=== PATIENT | male | born 1965 | race American Indian/Alaskan Native ===

== ENCOUNTER 2018-11-17 00:20 | Inpatient (IN) | payer SELFPAY ==
[2018-11-17] MEDS ORDERED: ASPIRIN PO ONE (00:52)
[2018-11-17 01:32] LABS: Basophils % (Auto) 0.9 % (0.0-1.8); Eosinophils # (Auto) 0.2 K/mm3 (0.0-0.4); Eosinophils % (Auto) 4.3 % (0.0-4.3); Hemoglobin 14.4 gm/dl (11.8-15.2); Lymphocytes # (Auto) 1.4 K/mm3 (1.2-5.4); Lymphocytes % (Auto) 35.3 % (13.4-35.0); Mean Corpuscular HGB Conc 34 % (32-34); Mean Corpuscular Volume 97 fl (84-94); Monocytes # (Auto) 0.5 K/mm3 (0.0-0.8); Monocytes % (Auto) 12.7 % (0.0-7.3); Platelet Count 240 K/mm3 (140-440); Red Blood Count 4.34 M/mm3 (3.65-5.03); Red Cell Distribution Width 15.2 % (13.2-15.2)
[2018-11-17 01:46] LABS: BUN/Creatinine Ratio 8; Blood Urea Nitrogen 8 mg/dL (9-20); Calcium 8.8 mg/dL (8.4-10.2); Hemolysis Index 7
[2018-11-17] MEDS ORDERED: ZOFRAN IV ONE (01:56)
[2018-11-17] MEDS ORDERED: NITRO-BID 2% TP ONE (01:56)
[2018-11-17] MEDS ORDERED: SUBLIMAZE IV ONE (01:56)
--- NOTE | 2018-11-17 01:58 | Emergency Department Report ---
HPI - General Chief Complaint: Chest Pain Time Seen by Provider: 11/17/18 01:46 - [facility] HPI: Room 18 The patient is a 53-year-old male presenting with a chief complaint of chest pain. The patient states since yesterday he has had constant substernal chest tightness associated with shortness of breath nausea and vomiting. Patient admits to dizziness and swelling in bilateral lower extremities as well as bilateral hands. Patient denies diaphoresis. Patient currently gives his chest pain score of 10/10. The patient states he is on hydrochlorothiazide and Lasix for CHF but he missed one day of those medications. Patient states his last stress test occurred in 2008 but he's never had a cardiac catheterization Location: [See above] Duration: [See above] Quality: Tightness Severity: 07/04 Modifying factors: [see above] Context: [see above] Mode of transportation: [not driving] ED Past Medical Hx - Past Medical History Hx Hypertension: Yes Hx Congestive Heart Failure: Yes Additional medical history: BPH - Surgical History Past Surgical History?: Yes Additional Surgical History: Right forearm tendon repair, right lower extremity tendon repair - Family History Family history: no significant - Social History Smoking Status: Former Smoker (none 1 year) Substance Use Type: None (denies illicit drug use), Alcohol (moderate) ED Review of Systems ROS: Stated complaint: HANDS SWOLLEN/CHEST PAIN/HIGH BP Other details as noted in HPI Constitutional: denies: diaphoresis Eyes: denies: eye pain ENT: denies: throat pain Respiratory: shortness of breath Cardiovascular: chest pain Endocrine: no symptoms reported Gastrointestinal: nausea, vomiting Genitourinary: denies: dysuria Musculoskeletal: denies: back pain Neurological: denies: headache Physical Exam - Physical Exam Vital Signs: Vital Signs 11/17/18 11/17/18 00:46 01:45 Temperature 98.6 F Pulse Rate 90 78 Respiratory 20 12 Rate Blood Pressure 161/115 O2 Sat by Pulse 98 96 Oximetry Physical Exam: GENERAL: The patient is well-developed well-nourished male sitting on stretcher not appear to be in acute distress. [] HEENT: Normocephalic. Atraumatic. Extraocular motions are intact. Patient has moist mucous membranes. NECK: Supple. Trachea midline CHEST/LUNGS: Clear to auscultation. There is no respiratory distress noted. HEART/CARDIOVASCULAR: Regular. There is no tachycardia. There is no gallop rub or murmur. ABDOMEN: Abdomen is soft, nontender. Patient has normal bowel sounds. There is no abdominal distention. SKIN: There is no rash. There is trace bilateral lower extremity pitting edema. There is no diaphoresis. NEURO: The patient is awake, alert, and oriented. The patient is cooperative. The patient has normal speech MUSCULOSKELETAL:There is no evidence of acute injury. ED Course Vital Signs 11/17/18 11/17/18 00:46 01:45 Temperature 98.6 F Pulse Rate 90 78 Respiratory 20 12 Rate Blood Pressure 161/115 O2 Sat by Pulse 98 96 Oximetry ED Medical Decision Making - Lab Data Result diagrams: 11/17/18 00:56 11/17/18 00:56 Laboratory Results - last 24 hr 11/17/18 11/17/18 00:56 00:56 WBC 3.8 L RBC 4.34 Hgb 14.4 Hct 42.0 MCV 97 H MCH 33 H MCHC 34 RDW 15.2 Plt Count 240 Lymph % (Auto) 35.3 H Jewell % (Auto) 12.7 H Eos % (Auto) 4.3 Baso % (Auto) 0.9 Lymph # 1.4 Jewell # 0.5 Eos # 0.2 Baso # 0.0 Seg Neutrophils % 46.8 Seg Neutrophils # 1.8 Sodium 141 Potassium 3.8 Chloride 101.8 Carbon Dioxide 25 Anion Gap 18 BUN 8 L Creatinine 1.0 Estimated GFR > 60 BUN/Creatinine Ratio 8 Glucose 98 Calcium 8.8 Troponin T < 0.010 - EKG Data -: EKG Interpreted by Me EKG shows normal: sinus rhythm Rate: normal - EKG Data When compared to previous EKG there are: previous EKG unavailable Interpretation: nonspecific ST-T wave emily - Radiology Data Radiology results: image reviewed (chest x-ray) interpreted by me: Chest x-ray-no focal infiltrates, no pneumothorax - Differential Diagnosis ACS, pericarditis, CHF exacerbation, pneumonia Critical care attestation.: If time is entered above; I have spent that time in minutes in the direct care of this critically ill patient, excluding procedure time. ED Disposition Clinical Impression: Chest pain Disposition: DC09 OP ADMIT IP TO THIS HOSP Is pt being admited?: Yes Does the pt Need Aspirin: Yes Condition: Fair Instructions: Chest Pain (ED) [facility] [Primary Care Provider] - 3-5 Days Time of Disposition: 02:33 (hospitalist notified (Dr Ramirez))
--- NOTE | 2018-11-17 02:29 | XRay Report ---
FINAL REPORT PROCEDURE: XR CHEST 1V AP TECHNIQUE: Chest radiograph anteroposterior view. CPT 44893 HISTORY: chest pain COMPARISON: No prior studies are available for comparison. FINDINGS: Heart: Normal. Mediastinum/Vessels: Normal. Lungs/Pleural space: Normal. Bony thorax: No acute osseous abnormality. Life support devices: None. IMPRESSION: No acute cardiopulmonary abnormality.
[2018-11-17] MEDS ORDERED: NITROSTAT SL PRN (03:41)
[2018-11-17] MEDS ORDERED: MORPHINE IV PRN (03:42)
[2018-11-17] MEDS ORDERED: ZOFRAN IV PRN (03:42)
[2018-11-17] MEDS ORDERED: TYLENOL PO PRN (03:42)
[2018-11-17] MEDS: HEPARIN SUB-Q SCH ×2 (04:15→15:51)
[2018-11-17] MEDS: NITRO-BID 2% TP SCH ×5 (04:21→17:51)
--- NOTE | 2018-11-17 04:25 | History and Physical Report ---
CHIEF COMPLAINT: Chest pain. HISTORY OF PRESENT ILLNESS: The patient is a 53-year-old male, who said he has been having chest pain going on for about 24 hours prior to presentation. Pain is substernal and occurs as tightness in the chest associated with shortness of breath, dizziness, nausea and vomiting. Also, the patient said he has been having swelling in the lower extremity as well as the hand. There is no history of diaphoresis. No history of fever or chills and no history of cough and the patient presented for evaluation. PAST MEDICAL HISTORY: Pertinent for hypertension, congestive heart failure, benign prostatic hypertrophy. PAST SURGICAL HISTORY: Pertinent for right forearm tendon repair, right lower extremity tendon repair. FAMILY HISTORY: Noncontributory. SOCIAL HISTORY: The patient is a former cigarette smoker, but does not smoke currently, does not use illicit drugs and drinks alcohol occasionally. MEDICATIONS: The patient's home medications are not known at this time. ALLERGIES: THE PATIENT IS ALLERGIC TO PENICILLIN. REVIEW OF SYSTEMS: CONSTITUTIONAL: There is no fever, no chills, no diaphoresis. HEENT: There is no headache or sore throat. CARDIOVASCULAR SYSTEM: Chest pain is present. No orthopnea. RESPIRATORY: Shortness of breath is present. No cough. GASTROINTESTINAL: Nausea and vomiting is present. No abdominal pain, diarrhea or constipation. NEUROLOGICAL SYSTEM: There is no numbness, but there is dizziness and there is no altered mental status. MUSCULOSKELETAL SYSTEM: There is no joint pain or swelling. DERMATOLOGICAL SYSTEM: There is no skin rash or itching. GENITOURINARY SYSTEM: There is dysuria, hematuria or flank pain. Rest of system review is normal. PHYSICAL EXAMINATION: GENERAL: At the time of exam, the patient was found to be alert, oriented x 3 and not in acute disease. The patient's vital signs at the initial time of presentation shows temperature of 98.6 degrees Fahrenheit, pulse of 90, respirations 20, blood pressure 161/115, O2 sat of 98% on room air and the patient's blood pressure later came down to 133/99. HEENT: Showed pupils to be equal, round, reactive to light and accommodating. Extraocular muscles are intact. NECK: Supple with no JVD or carotid bruit. CARDIOVASCULAR: Showed normal first and second heart sounds with no gallops or murmurs. RESPIRATORY SYSTEM: Show good air entry on both sides of the lungs with no abnormal breath sounds. GASTROINTESTINAL SYSTEM: Show abdomen to be full, soft, nontender with no organomegaly or rigidity. NEUROLOGICAL: Shows no focal deficit. MUSCULOSKELETAL SYSTEM: Show no joint swelling or tenderness. DERMATOLOGIC SYSTEM: Show no skin rash. GENITOURINARY SYSTEM: Showing no costovertebral angle tenderness. PERTINENT LABORATORY AND IMAGING STUDIES: The patient had chest x-ray done that shows no active cardiopulmonary lesion and the patient's lab results show CBC with normal hemoglobin and normal hematocrit, slightly low WBC of 3.8 with CBC differential showing elevated lymphocyte and monocyte count. The patient's chemistry was unremarkable. Cardiac enzyme and troponin came back normal. DIAGNOSES: 1. Chest pain. 2. Hypertension. PLAN OF CARE: 1. The patient will be admitted to telemetry as inpatient. 2. The patient will have cardiac enzymes involving troponin, total CK and CK-MB checked every 6 hours x 2 more level. 3. The patient will be n.p.o. for Lexiscan stress test in the morning. 4. The patient will be on aspirin 325 mg by mouth daily and will be on Tylenol 650 mg by mouth every 4 hours for fever and headache. 5. The patient will be on nitro paste half inch to anterior chest wall q. 6 hours and also the patient will be on sublingual nitroglycerin 0.4 mg every 5 minutes for breakthrough chest pain. 6. The patient will be on IV morphine 2 mg every 3 hours as needed for pain and IV Zofran 4 mg every 8 hours for nausea and vomiting. 7. The patient will remain n.p.o. for Lexiscan stress test this morning and will be on heparin 5000 units subcutaneous q. 12 hours for DVT prophylaxis. 8. The patient will be on oxygen by nasal cannula at 2 liter per minute. JOB# [id number] OCN/NTS
[2018-11-17 06:46] LABS: Creatine Kinase MB 3.2 ng/mL (0.0-4.0)
[2018-11-17] MEDS ORDERED: LEXISCAN IV ONE ×2 (08:04→08:09)
[2018-11-17] MEDS: ASPIRIN PO SCH (11:05)
[2018-11-17] MEDS ORDERED: APRESOLINE IV STA (11:27)
[2018-11-17] MEDS: NORVASC PO SCH (13:03)
[2018-11-17] MEDS: LASIX PO SCH (13:03)
[2018-11-17] MEDS: ZESTRIL PO SCH (13:03)
[2018-11-17] MEDS: DUONEB *Not for PRN Use IH SCH ×2 (14:18→21:42)
[2018-11-17 14:24] LABS: Creatine Kinase MB 2.9 ng/mL (0.0-4.0)
[2018-11-17] MEDS: MUCINEX ER PO SCH ×2 (15:51→21:15)
--- NOTE | 2018-11-17 16:06 | Event Note ---
Date: 11/17/18 Patient admitted today for chest pain, rule out ACS. He also complained of dry cough with shortness of breath, indicative of acute bronchitis. He will be replaced a mucinex and duoneb. we will do influenza A/B screen. His stress test result is pending. Echo ordered. For possible discharge in a.m. if clinically stable
[2018-11-17] MEDS ORDERED: ATIVAN IV PRN (16:32)
[2018-11-17] MEDS: VITAMIN B-1 PO SCH (16:59)
[2018-11-17] MEDS: FOLVITE PO SCH (16:59)
[2018-11-17] MEDS: LIBRIUM PO SCH (21:15)
--- NOTE | 2018-11-17 21:47 | Treadmill Report ---
NUCLEAR PERFUSION SCAN REFERRING PHYSICIAN: Hospitalist service. PROTOCOL: The patient was brought to the stress lab in a postabsorptive state, given 10 mCi of technetium 99m at rest. The patient underwent rest imaging. The patient underwent Lexiscan stress test per standard protocol. At peak stress, the patient was given 26 mCi of technetium 99m. Shortly thereafter, the patient underwent stress imaging. Raw imaging reveals significant GI artifact. There is mild motion artifact as well. SPECT imaging examined carefully in horizontal long axis, vertical long axis, and short axis views. INTERPRETATION: Technically difficult study due to motion artifact, but grossly no evidence of significant fixed or reversible perfusion defects suggestive of prior infarction or ischemia. Gated wall motion reveals normal systolic thickening, calculated ejection fraction 54%. No TID. CONCLUSIONS: 1. Technically difficult study due to motion artifact, but grossly probably normal without evidence of significant degree of ischemia or prior infarction. 2. Normal left ventricular systolic performance without evidence of transient ischemic dilatation or stress-induced segmental wall motion abnormalities. JOB# [id number] SIMON/ROYA
[2018-11-18] MEDS: DUONEB *Not for PRN Use IH SCH ×2 (02:37→08:50)
[2018-11-18] MEDS: HEPARIN SUB-Q SCH (04:28)
[2018-11-18] MEDS: NITRO-BID 2% TP SCH ×3 (05:53→13:28)
[2018-11-18] MEDS: LIBRIUM PO SCH ×2 (08:32→13:38)
[2018-11-18] MEDS: VITAMIN B-1 PO SCH (09:37)
[2018-11-18] MEDS: MUCINEX ER PO SCH (09:38)
[2018-11-18] MEDS: FOLVITE PO SCH (09:38)
[2018-11-18] MEDS: LASIX PO SCH (09:38)
[2018-11-18] MEDS: ASPIRIN PO SCH (09:38)
[2018-11-18] MEDS: NORVASC PO SCH (09:40)
[2018-11-18] MEDS: ZESTRIL PO SCH (09:41)
[2018-11-18] MEDS ORDERED: THERAGRAN Tab PO SCH (10:00)
[2018-11-18 12:20] VITALS: BP 150/102
--- NOTE | 2018-11-20 02:19 | Discharge Summary ---
Providers - Providers Date of Admission: 11/17/18 02:31 Date of discharge: 11/18/18 Attending physician: MILLIE ROGERS Primary care physician: ANTONIO DEL RIO MD Hospitalization Reason for admission: chest pain Condition: Fair Pertinent studies: Chest x-ray: Negative Stress test Echo: EF of 45-50% with normal diastolic dysfunction Procedures: None Hospital course: Final discharge diagnoses: -Chest pain, rule out ACS -Acute bronchitis -Uncontrolled hypertension -Polysubstance abuse(tobacco and alcohol) Hospital course: Patient was admitted and placed on chest pain pathway. Serial troponin levels were negative. Due to his history of alcohol abuse, he was placed on alcohol withdrawal prophylaxis. In addition, he received antihypertensives for blood pressure control as well as Mucinex and nebulizer breathing treatments for the bronchitis. Thereafter, he had a stress test which was reported as negative for acute ischemia. He was then deemed stable for discharge with clinic follow-up. On discharge, the patient was chest pain-free. He was also counseled on tobacco and alcohol use cessation. Disposition: DC- TO HOME OR SELFCARE Time spent for discharge: 30 minutes Core Measure Documentation - Palliative Care Palliative Care/ Comfort Measures: Not Applicable - Core Measures Any of the following diagnoses?: none Exam - Constitutional Vitals: Temp Pulse Resp BP Pulse Ox 98.1 F 80 20 150/102 95 11/18/18 12:18 11/18/18 12:19 11/18/18 12:19 11/18/18 12:19 11/18/18 12:19 General appearance: Present: no acute distress, well-nourished - EENT Eyes: Present: PERRL, EOM intact ENT: hearing intact, clear oral mucosa - Neck Neck: Present: supple, normal ROM - Respiratory Respiratory effort: normal Respiratory: bilateral: CTA - Cardiovascular Rhythm: regular Heart Sounds: Present: S1 & S2. Absent: rub, click - Extremities Extremities: No edema Peripheral Pulses: within normal limits - Abdominal General gastrointestinal: Present: soft, non-tender, non-distended, normal bowel sounds Male genitourinary: Present: normal - Integumentary Integumentary: Present: clear, warm, dry - Musculoskeletal Musculoskeletal: gait normal, strength equal bilaterally - Psychiatric Psychiatric: appropriate mood/affect, intact judgment & insight - Neurologic Neurologic: CNII-XII intact, moves all extremities Plan Follow up with: JOHN [facility] MD NIKKY [Referring] - 3-5 Days Prescriptions: ALBUTEROL Inhaler(NF) [VENTOLIN Inhaler(NF)] 1 puff IH Q6H PRN #1 inha PRN Reason: Shortness Of Breath amLODIPine [Norvasc] 10 mg PO QDAY #30 tablet guaiFENesin ER [Mucinex ER] 600 mg PO BID #10 tablet
== END 2018-11-18 13:45 | disposition home or self-care (01) | DRG 313 ==
LOC: ED 00:20 → 4A 02:31
PROVIDERS: ADMIT Internal Medicine; ATTEND Internal Medicine
DX: R07.9 Chest pain, unspecified (principal); J20.9 Acute bronchitis, unspecified; F19.10 Other psychoactive substance abuse, uncomplicated; I11.0 Hypertensive heart disease with heart failure; I50.9 Heart failure, unspecified; N40.0 Benign prostatic hyperplasia without lower urinary tract symptoms; F17.210 Nicotine dependence, cigarettes, uncomplicated; Z72.89 Other problems related to lifestyle; Z71.6 Tobacco abuse counseling; Z71.41 Alcohol abuse counseling and surveillance of alcoholic; Z88.0 Allergy status to penicillin
CPT/HCPCS: 36415; 71045; 78452; 80048; 82550; 82553; 84484; 85025; 87116; 87400; 93005; 93010; 93017; 93306; 94640; G0378; A9502; J0360; J1644; J2060; J2270; J2405; J2785; J3010

== ENCOUNTER 2019-01-23 23:12 | Emergency (ER) | payer SELFPAY ==
[2019-01-23] MEDS ORDERED: ASPIRIN PO ONE (23:27)
[2019-01-23 23:30] VITALS: BP 146/100
[2019-01-23 23:38] LABS: Basophils % (Auto) 0.3 % (0.0-1.8); Eosinophils # (Auto) 0.1 K/mm3 (0.0-0.4); Eosinophils % (Auto) 1.5 % (0.0-4.3); Hematocrit 39.7 % (35.5-45.6); Hemoglobin 13.8 gm/dl (11.8-15.2); Lymphocytes # (Auto) 0.6 K/mm3 (1.2-5.4); Lymphocytes % (Auto) 16.3 % (13.4-35.0); Mean Corpuscular HGB Conc 35 % (32-34); Mean Corpuscular Volume 95 fl (84-94); Monocytes # (Auto) 0.4 K/mm3 (0.0-0.8); Monocytes % (Auto) 11.1 % (0.0-7.3); Platelet Count 215 K/mm3 (140-440); Red Blood Count 4.17 M/mm3 (3.65-5.03); Red Cell Distribution Width 16.2 % (13.2-15.2)
[2019-01-24] LABS: BUN/Creatinine Ratio 8; Blood Urea Nitrogen 7 mg/dL (9-20); Calcium 8.7 mg/dL (8.4-10.2); Hemolysis Index 9
--- NOTE | 2019-01-24 00:04 | XRay Report ---
PROCEDURE: XR CHEST 1V AP TECHNIQUE: Chest radiograph single view. HISTORY: Chest Pain COMPARISONS: None . FINDINGS: Heart: Normal. Mediastinum/Vessels: Normal. Lungs/Pleural space: Normal. Bony thorax: No acute osseous abnormality. Life support devices: None. IMPRESSION: No acute cardiopulmonary abnormality. This document is electronically signed by Nicholas Gross MD., Jan 24 2019 12:02:35 AM ET
--- NOTE | 2019-01-24 01:11 | Emergency Department Report ---
ED Chest Pain HPI - General Chief Complaint: Chest Pain Stated Complaint: CHEST PAIN/DIZZINESS Time Seen by Provider: 01/24/19 01:01 Source: patient Mode of arrival: Ambulatory Limitations: No Limitations - History of Present Illness Initial Comments: Patient is 53 years old male with history of hypertension, asthma and history of prostate cancer. Patient presented to the ER complaining of chest pain and lower extremity swelling on both sides. Patient stated that his pain is started 5 days ago. Patient stated that he stand a lot at his work. Patient denied any fever, shortness of breath. Patient denied any abdominal pain, nausea or vomiting. MD Complaint: chest pain - Related Data Home Medications Medication Instructions Recorded Confirmed Last Taken Furosemide [Lasix TAB] 20 mg PO DAILY 11/17/18 11/17/18 Unknown Lisinopril [Zestril TAB] 40 mg PO DAILY 11/17/18 11/17/18 Unknown Previous Rx's Medication Instructions Recorded Last Taken Type ALBUTEROL Inhaler(NF) [VENTOLIN 1 puff IH Q6H PRN #1 inha 11/18/18 Unknown Rx Inhaler(NF)] amLODIPine [Norvasc] 10 mg PO QDAY #30 tablet 11/18/18 Unknown Rx guaiFENesin ER [Mucinex ER] 600 mg PO BID #10 tablet 11/18/18 Unknown Rx Allergies Allergy/AdvReac Type Severity Reaction Status Date / Time Penicillins Allergy Hives Verified 11/17/18 00:21 Heart Score - HEART Score History: Slightly suspicious EKG: Normal Age: 45-65 Risk factors: 1-2 risk factors Troponin: < normal limit HEART Score: 2 - Critical Actions Critical Actions: 0-3 pts:0.9-1.7%risk of adverse cardiac event.Candidate for discharge ED Review of Systems ROS: Stated complaint: CHEST PAIN/DIZZINESS Other details as noted in HPI Comment: All other systems reviewed and negative Constitutional: denies: chills, fever Respiratory: denies: cough, shortness of breath, SOB with exertion Cardiovascular: chest pain Gastrointestinal: denies: abdominal pain, nausea, vomiting, diarrhea, co nstipation, hematemesis, hematochezia Neurological: denies: headache, weakness ED Past Medical Hx - Past Medical History Previous Medical History?: Yes Hx Hypertension: Yes Hx Heart Attack/AMI: No Hx Congestive Heart Failure: Yes Hx Diabetes: No Hx Deep Vein Thrombosis: No Hx of Cancer: Yes (Prostate) Hx Asthma: Yes Hx COPD: No Additional medical history: BPH - Surgical History Past Surgical History?: Yes Hx Coronary Stent: No Hx Pacemaker: No Hx Internal Defibrillator: No Additional Surgical History: Right forearm tendon repair, right lower extremity tendon repair - Social History Smoking Status: Never Smoker Substance Use Type: None - Medications Home Medications: Home Medications Medication Instructions Recorded Confirmed Last Taken Type Furosemide [Lasix TAB] 20 mg PO DAILY 11/17/18 11/17/18 Unknown History Lisinopril [Zestril TAB] 40 mg PO DAILY 11/17/18 11/17/18 Unknown History ALBUTEROL Inhaler(NF) [VENTOLIN 1 puff IH Q6H PRN #1 inha 11/18/18 Unknown Rx Inhaler(NF)] amLODIPine [Norvasc] 10 mg PO QDAY #30 tablet 11/18/18 Unknown Rx guaiFENesin ER [Mucinex ER] 600 mg PO BID #10 tablet 11/18/18 Unknown Rx ED Physical Exam - General Limitations: No Limitations General appearance: alert, in no apparent distress - Head Head exam: Present: atraumatic, normocephalic, normal inspection - Eye Eye exam: Present: normal appearance, PERRL - ENT ENT exam: Present: normal exam, normal orophraynx, mucous membranes moist - Neck Neck exam: Present: normal inspection, full ROM. Absent: tenderness, meningismus, lymphadenopathy, thyromegaly - Respiratory Respiratory exam: Present: normal lung sounds bilaterally - Cardiovascular Cardiovascular Exam: Present: regular rate, normal rhythm, normal heart sounds - GI/Abdominal GI/Abdominal exam: Present: soft, normal bowel sounds. Absent: distended, tenderness, guarding, rebound, rigid, mass, bruit, pulsatile mass, hernia - Extremities Exam Extremities exam: Present: normal inspection, full ROM, normal capillary refill - Back Exam Back exam: Present: normal inspection, full ROM. Absent: CVA tenderness (R), CVA tenderness (L), muscle spasm, paraspinal tenderness, vertebral tenderness - Neurological Exam Neurological exam: Present: alert, oriented X3, CN II-XII intact, normal gait, reflexes normal - Skin Skin exam: Present: warm, intact, normal color. Absent: cyanosis, diaphoretic, erythema, urticaria ED Course Vital Signs 01/23/19 23:28 Temperature 98.7 F Pulse Rate 98 H Respiratory 20 Rate Blood Pressure 146/100 O2 Sat by Pulse 100 Oximetry ED Medical Decision Making - Lab Data Result diagrams: 01/23/19 23:28 01/23/19 23:28 - EKG Data -: EKG Interpreted by Me EKG shows normal: sinus rhythm Rate: normal - EKG Data Interpretation: no acute changes - Radiology Data Radiology results: report reviewed Chest x-ray is unremarkable - Medical Decision Making Patient is 53 years old male with history of hypertension, asthma and history of prostate cancer. Patient presented to the ER complaining of chest pain and lower extremity swelling on both sides. Patient stated that his pain is started 5 days ago. Patient stated that he stand a lot at his work. Patient denied any fever, shortness of breath. Patient denied any abdominal pain, nausea or vomiting. Patient is chest pain-free. EKG is unremarkable. Chest x-ray is negative for acute findings. Troponin is negative. No evidence of CHF exacerbation. And had a stress test in October of this year which was unremarkable. I'll prescribe Lasix for patient peripheral edema. Patient advised to follow-up with his primary care physician in the next 2-3 days and to return to the ER if symptoms have not improved. Critical care attestation.: If time is entered above; I have spent that time in minutes in the direct care of this critically ill patient, excluding procedure time. ED Disposition Clinical Impression: Chest pain, Peripheral edema Disposition: - TO HOME OR SELFCARE Is pt being admited?: No Condition: Stable Instructions: Chest Pain (ED), Leg Edema (ED) Referrals: CARLOS ENCINAS MD [Primary Care Provider] - 3-5 Days
== END 2019-01-24 02:20 | disposition home or self-care (01) ==
LOC: ED 23:12
DX: R07.9 Chest pain, unspecified (principal); R60.9 Edema, unspecified; I11.0 Hypertensive heart disease with heart failure; I50.9 Heart failure, unspecified; N40.0 Benign prostatic hyperplasia without lower urinary tract symptoms; Z85.46 Personal history of malignant neoplasm of prostate
CPT/HCPCS: 36415; 71045; 80048; 83880; 84484; 85025; 93005; 93010

== ENCOUNTER 2019-03-19 23:04 | Inpatient (IN) | payer OTHER ==
--- NOTE | 2019-03-20 00:02 | Emergency Department Report ---
HPI - General Chief Complaint: Chest Pain Time Seen by Provider: 03/19/19 23:43 - HPI HPI: Room 6 The patient is a 53-year-old male presenting with a chief complaint of chest pain. The patient states he's had bilateral lower extremity edema for the past 2 days and chest pain for 1 day. Patient describes the chest pain as substernal in origin and aching in nature. Patient admits to shortness of breath, nausea/vomiting and diaphoresis. Patient also admits to suicidal ideation but will not state for how long. The patient states he has not made any attempts to harm himself but his plan was to shoot himself in the head. Location: Chest, mental state Duration: [See above] Quality: Aching Severity: [See above] Modifying factors: [see above] Context: [see above] Mode of transportation: [not driving] ED Past Medical Hx - Past Medical History Previous Medical History?: Yes Hx Hypertension: Yes Hx Congestive Heart Failure: Yes Hx of Cancer: Yes (prostate) Hx Seizures: Yes Hx Asthma: Yes Additional medical history: BPH - Surgical History Past Surgical History?: Yes Additional Surgical History: Right forearm tendon repair, right lower extremity tendon repair - Family History Family history: no significant - Social History Smoking Status: Never Smoker Substance Use Type: Alcohol (daily) - Medications Home Medications: Home Medications Medication Instructions Recorded Confirmed Last Taken Type Furosemide [Lasix TAB] 20 mg PO DAILY 11/17/18 11/17/18 Unknown History Lisinopril [Zestril TAB] 40 mg PO DAILY 11/17/18 11/17/18 Unknown History ALBUTEROL Inhaler(NF) [VENTOLIN 1 puff IH Q6H PRN #1 inha 11/18/18 Unknown Rx Inhaler(NF)] amLODIPine [Norvasc] 10 mg PO QDAY #30 tablet 11/18/18 Unknown Rx guaiFENesin ER [Mucinex ER] 600 mg PO BID #10 tablet 11/18/18 Unknown Rx Furosemide [Lasix] 20 mg PO QDAY #30 tablet 01/24/19 Unknown Rx Lisinopril [Zestril TAB] 40 mg PO QDAY #30 tablet 01/24/19 Unknown Rx ED Review of Systems ROS: Stated complaint: LEGS PAINFUL WITH SWELLING Other details as noted in HPI Constitutional: diaphoresis Eyes: denies: eye pain ENT: denies: throat pain Respiratory: shortness of breath Cardiovascular: chest pain Endocrine: no symptoms reported Gastrointestinal: nausea, vomiting Genitourinary: denies: dysuria Musculoskeletal: denies: back pain Neurological: denies: headache Psychiatric: suicidal thoughts Physical Exam - Physical Exam Vital Signs: Vital Signs 03/19/19 03/19/19 03/19/19 23:14 23:15 23:41 Temperature 99.6 F 98.1 F Pulse Rate 87 85 Respiratory 18 16 Rate Blood Pressure 100/52 98/59 124/65 [Right] O2 Sat by Pulse 92 98 Oximetry Physical Exam: GENERAL: The patient is well-developed well-nourished male lying on stretcher asleep requiring frequent reawakening for exam. [] HEENT: Normocephalic. Atraumatic. Extraocular motions are intact. Patient has moist mucous membranes. NECK: Supple. Trachea midline CHEST/LUNGS: Clear to auscultation. There is no respiratory distress noted. HEART/CARDIOVASCULAR: Regular. There is no tachycardia. There is no gallop rub or murmur. ABDOMEN: Abdomen is soft, nontender. Patient has normal bowel sounds. There is no abdominal distention. SKIN: There is no rash. There is 2+ bilateral lower extremity pitting edema. There is no diaphoresis. NEURO: The patient is asleep but awakens to voice and is oriented. The patient is cooperative. The patient has no focal neurologic deficits. The patient has normal speech MUSCULOSKELETAL: There is no evidence of acute injury. ED Course Vital Signs 03/19/19 03/19/19 03/19/19 23:14 23:15 23:41 Temperature 99.6 F 98.1 F Pulse Rate 87 85 Respiratory 18 16 Rate Blood Pressure 100/52 98/59 124/65 [Right] O2 Sat by Pulse 92 98 Oximetry ED Medical Decision Making - Lab Data Result diagrams: 03/20/19 00:05 03/20/19 00:05 Laboratory Tests 03/20/19 03/20/19 03/20/19 00:05 00:05 00:05 WBC 3.4 L RBC 3.75 Hgb 12.4 Hct 36.9 MCV 99 H MCH 33 H MCHC 34 RDW 16.3 H Plt Count 193 Lymph % (Auto) 41.5 H [place] % (Auto) 15.4 H Eos % (Auto) 4.2 Baso % (Auto) 0.7 Lymph # 1.4 [place] # 0.5 Eos # 0.1 Baso # 0.0 Seg Neutrophils % 38.2 L Seg Neutrophils # 1.3 L Sodium 145 Potassium 3.2 L Chloride 102.9 Carbon Dioxide 25 Anion Gap 20 BUN 8 L Creatinine 0.8 Estimated GFR > 60 BUN/Creatinine Ratio 10 Glucose 105 H Calcium 8.6 Total Bilirubin 0.20 AST 55 H ALT 35 Alkaline Phosphatase 86 CK-MB (CK-2) 4.3 H Troponin T < 0.010 NT-Pro-B Natriuret Pep < 5 Total Protein 6.4 Albumin 3.8 L Albumin/Globulin Ratio 1.5 Salicylates < 0.3 L Acetaminophen Plasma/Serum Alcohol 03/20/19 03/20/19 00:05 00:05 WBC RBC Hgb Hct MCV MCH MCHC RDW Plt Count Lymph % (Auto) [place] % (Auto) Eos % (Auto) Baso % (Auto) Lymph # [place] # Eos # Baso # Seg Neutrophils % Seg Neutrophils # Sodium Potassium Chloride Carbon Dioxide Anion Gap BUN Creatinine Estimated GFR BUN/Creatinine Ratio Glucose Calcium Total Bilirubin AST ALT Alkaline Phosphatase CK-MB (CK-2) Troponin T NT-Pro-B Natriuret Pep Total Protein Albumin Albumin/Globulin Ratio Salicylates Acetaminophen < 5.0 L Plasma/Serum Alcohol 0.16 H - EKG Data -: EKG Interpreted by Me EKG shows normal: sinus rhythm Rate: normal - EKG Data When compared to previous EKG there are: previous EKG unavailable Interpretation: other (ischemic changes seen) - Radiology Data Radiology results: image reviewed (chest x-ray) interpreted by me: Chest x-ray-no focal infiltrates, no pneumothorax - Differential Diagnosis ACS, pericarditis, GERD, suicidal ideation, CHF exacerbation Critical care attestation.: If time is entered above; I have spent that time in minutes in the direct care of this critically ill patient, excluding procedure time. ED Disposition Clinical Impression: Chest pain, CHF exacerbation, Suicidal ideation, Alcohol intoxication Disposition: OP ADMIT IP TO THIS HOSP Is pt being admited?: Yes Does the pt Need Aspirin: Yes Condition: Fair Instructions: Chest Pain (ED) Time of Disposition: 01:43 (hospitalist paged (Dr. Megan Gutierrez))
[2019-03-20] MEDS ORDERED: PLAVIX PO ONE (00:12)
[2019-03-20] MEDS ORDERED: NITRO-BID 2% TP ONE (00:12)
[2019-03-20 01:00] LABS: Basophils % (Auto) 0.7 % (0.0-1.8); Eosinophils # (Auto) 0.1 K/mm3 (0.0-0.4); Eosinophils % (Auto) 4.2 % (0.0-4.3); Hematocrit 36.9 % (35.5-45.6); Hemoglobin 12.4 gm/dl (11.8-15.2); Lymphocytes # (Auto) 1.4 K/mm3 (1.2-5.4); Lymphocytes % (Auto) 41.5 % (13.4-35.0); Mean Corpuscular HGB Conc 34 % (32-34); Mean Corpuscular Volume 99 fl (84-94); Monocytes # (Auto) 0.5 K/mm3 (0.0-0.8); Monocytes % (Auto) 15.4 % (0.0-7.3); Platelet Count 193 K/mm3 (140-440); Red Blood Count 3.75 M/mm3 (3.65-5.03); Red Cell Distribution Width 16.3 % (13.2-15.2)
--- NOTE | 2019-03-20 01:12 | XRay Report ---
PROCEDURE: Chest. TECHNIQUE: Portable AP view. HISTORY: chest pain COMPARISONS: Chest 01/23/2019. FINDINGS: The heart and mediastinum appear normal. The lungs are clear and well expanded. There are no pleural effusions. The soft tissues and regional skeleton are unremarkable. IMPRESSION: Negative portable chest. This document is electronically signed by Rodo Ochoa MD., March 20 2019 01:10:36 AM ET
[2019-03-20 01:25] LABS: Creatine Kinase MB 4.3 ng/mL (0.0-4.0)
[2019-03-20 01:28] LABS: Alanine Aminotransferase 35 units/L (7-56); Albumin 3.8 g/dL (3.9-5); BUN/Creatinine Ratio 10; Blood Urea Nitrogen 8 mg/dL (9-20); Calcium 8.6 mg/dL (8.4-10.2); Hemolysis Index 10
[2019-03-20] MEDS ORDERED: K-DUR PO ONE (01:42)
[2019-03-20] MEDS ORDERED: SODIUM CHLORIDE FLUSH SYRINGE 10 ML IV PRN (02:27)
[2019-03-20] MEDS ORDERED: TYLENOL PO PRN ×2 (02:27→03:11)
[2019-03-20] MEDS ORDERED: ZOFRAN IV PRN (02:27)
--- NOTE | 2019-03-20 02:48 | History and Physical Report ---
<SUBHASH ALEMAN - Last Filed: 03/20/19 04:06> History of Present Illness Date of examination: 03/20/19 Date of admission: 03/20/2019 Chief complaint: Chest pain 1 day History of present illness: Patient is a 48-year-old male with PMHx of CHF, hypertension, asthma, seizure disorder who presents to the ER with complaint of chest pain. Patient states that the chest pain started today it is an intermittent pain located in the left substernal area without radiation. Patient denies previous chest pain, he complaints of lower extremity edema that is been going on for 2 days. Patient was very depressed in the ER he states that "he plan on shutting himself in the head "patient was placed in suicidal watch and admitted for evaluation of chest pain. Past History Past Medical History: heart failure, hyperthyroidism, seizures Past Surgical History: No surgical history Social history: alcohol abuse Family history: no significant family history Medications and Allergies Allergies Allergy/AdvReac Type Severity Reaction Status Date / Time acetaminophen [From Tylenol] Allergy Unknown Verified 03/20/19 03:00 aspirin Allergy Unknown Verified 03/19/19 23:11 furosemide [From Lasix] Allergy Unknown Verified 03/19/19 23:16 ibuprofen [From Motrin] Allergy Unknown Verified 03/19/19 23:11 Penicillins Allergy Hives Verified 11/17/18 00:21 Home Medications Medication Instructions Recorded Confirmed Last Taken Type Furosemide [Lasix TAB] 20 mg PO DAILY 11/17/18 11/17/18 Unknown History Lisinopril [Zestril TAB] 40 mg PO DAILY 11/17/18 11/17/18 Unknown History ALBUTEROL Inhaler(NF) [VENTOLIN 1 puff IH Q6H PRN #1 inha 11/18/18 Unknown Rx Inhaler(NF)] amLODIPine [Norvasc] 10 mg PO QDAY #30 tablet 11/18/18 Unknown Rx guaiFENesin ER [Mucinex ER] 600 mg PO BID #10 tablet 11/18/18 Unknown Rx Furosemide [Lasix] 20 mg PO QDAY #30 tablet 01/24/19 Unknown Rx Lisinopril [Zestril TAB] 40 mg PO QDAY #30 tablet 01/24/19 Unknown Rx Active Meds: Active Medications Enoxaparin Sodium (Lovenox) 40 mg SUB-Q QDAY@1000 SALTY Review of Systems Cardiovascular: chest pain Exam - Constitutional Vitals: Temp Pulse Resp BP Pulse Ox 98.1 F 85 16 122/75 98 03/19/19 23:41 03/20/19 00:29 03/19/19 23:41 03/20/19 00:29 03/19/19 23:41 General appearance: Present: no acute distress - EENT Eyes: Present: EOM intact ENT: hearing intact - Neck Neck: Present: normal ROM - Respiratory Respiratory: bilateral: CTA - Cardiovascular Rhythm: regular Heart Sounds: Present: S1 & S2 - Extremities Extremity abnormal: edema (2) Peripheral Pulses: within normal limits - Abdominal General gastrointestinal: Present: deferred Male genitourinary: Present: deferred - Rectal Rectal Exam: deferred - Integumentary Integumentary: Present: clear, warm, dry - Musculoskeletal Musculoskeletal: strength equal bilaterally - Psychiatric Psychiatric: intact judgment & insight - Neurologic Neurologic: moves all extremities Results - Labs CBC & Chem 7: 03/20/19 02:53 03/20/19 02:53 Labs: Laboratory Last Values WBC 3.4 K/mm3 (4.5-11.0) L 03/20/19 00:05 RBC 3.75 M/mm3 (3.65-5.03) 03/20/19 00:05 Hgb 12.4 gm/dl (11.8-15.2) 03/20/19 00:05 Hct 36.9 % (35.5-45.6) 03/20/19 00:05 MCV 99 fl (84-94) H 03/20/19 00:05 MCH 33 pg (28-32) H 03/20/19 00:05 MCHC 34 % (32-34) 03/20/19 00:05 RDW 16.3 % (13.2-15.2) H 03/20/19 00:05 Plt Count 193 K/mm3 (140-440) 03/20/19 00:05 Lymph % (Auto) 41.5 % (13.4-35.0) H 03/20/19 00:05 [place] % (Auto) 15.4 % (0.0-7.3) H 03/20/19 00:05 Eos % (Auto) 4.2 % (0.0-4.3) 03/20/19 00:05 Baso % (Auto) 0.7 % (0.0-1.8) 03/20/19 00:05 Lymph # 1.4 K/mm3 (1.2-5.4) 03/20/19 00:05 [place] # 0.5 K/mm3 (0.0-0.8) 03/20/19 00:05 Eos # 0.1 K/mm3 (0.0-0.4) 03/20/19 00:05 Baso # 0.0 K/mm3 (0.0-0.1) 03/20/19 00:05 Seg Neutrophils % 38.2 % (40.0-70.0) L 03/20/19 00:05 Seg Neutrophils # 1.3 K/mm3 (1.8-7.7) L 03/20/19 00:05 Sodium 145 mmol/L (137-145) 03/20/19 00:05 Potassium 3.2 mmol/L (3.6-5.0) L 03/20/19 00:05 Chloride 102.9 mmol/L (98-107) 03/20/19 00:05 Carbon Dioxide 25 mmol/L (22-30) 03/20/19 00:05 20 mmol/L 03/20/19 00:05 BUN 8 mg/dL (9-20) L 03/20/19 00:05 0.8 mg/dL (0.8-1.5) 03/20/19 00:05 Estimated GFR > 60 ml/min 03/20/19 00:05 10 % 03/20/19 00:05 Glucose 105 mg/dL (75-100) H 03/20/19 00:05 Calcium 8.6 mg/dL (8.4-10.2) 03/20/19 00:05 0.20 mg/dL (0.1-1.2) 03/20/19 00:05 AST 55 units/L (5-40) H 03/20/19 00:05 ALT 35 units/L (7-56) 03/20/19 00:05 86 units/L (35-129) 03/20/19 00:05 CK-MB (CK-2) 4.3 ng/mL (0.0-4.0) H 03/20/19 00:05 < 0.010 ng/mL (0.00-0.029) 03/20/19 00:05 NT-Pro-B Natriuret Pep < 5 pg/mL (0-900) 03/20/19 00:05 6.4 g/dL (6.3-8.2) 03/20/19 00:05 3.8 g/dL (3.9-5) L 03/20/19 00:05 1.5 % 03/20/19 00:05 Salicylates < 0.3 mg/dL (2.8-20.0) L 03/20/19 00:05 Acetaminophen < 5.0 ug/mL (10.0-30.0) L 03/20/19 00:05 Plasma/Serum Alcohol 0.16 % (0-0.07) H 03/20/19 00:05 Assessment and Plan Assessment and plan: 1. Chest pain rule out ACS 2. CHF (unknown if systolic, EF unknown) 3. Hypertension 4. Hypokalemia 5. Hyperlipidemia 6. History of asthma (stable) 7. Seizure disorder 8. Major depression with suicidal ideation Plan: Patient is admitted for chest pain Continue cardiac enzymes q6hr x 2 Lipid panel in the a.m. Starts aspirin, beta yolande and statin Replace potassium PRN Place in suicidal precaution Stress test in a.m. Resume home meds DVT prophylaxis with insulin-dependent diabetes Definitive care discussed with patient, he voiced understanding Patient's condition and plan of care discussed with Dr Gutierrez Advance Directives: Yes VTE prophylaxis?: Mechanical Plan of care discussed with patient/family: Yes <CLIVE GUTIERREZ - Last Filed: 03/20/19 05:19> History of Present Illness Date of admission: 03/20/19 02:17 Medications and Allergies Active Meds: Active Medications Albuterol (Proventil) 2.5 mg IH Q4HRT PRN PRN Reason: Shortness Of Breath Amlodipine Besylate (Norvasc) 10 mg PO QDAY SALTY Bumetanide (Bumex) 1 mg PO QDAY SALTY Enoxaparin Sodium (Lovenox) 40 mg SUB-Q QDAY@1000 SALTY Guaifenesin (Mucinex Er) 600 mg PO BID SALTY Lisinopril (Zestril) 40 mg PO DAILY SALTY Lorazepam (Ativan) 2 mg IV Q1HR PRN PRN Reason: CIWA-Ar 8-15 Last Admin: 03/20/19 04:34 Dose: 2 mg Documented by: Morphine Sulfate (Morphine) 2 mg IV Q4H PRN PRN Reason: Pain, Moderate (4-6) Ondansetron HCl (Zofran) 4 mg IV Q8H PRN PRN Reason: Nausea And Vomiting Sodium Chloride (Sodium Chloride Flush Syringe 10 Ml) 10 ml IV BID SALTY Sodium Chloride (Sodium Chloride Flush Syringe 10 Ml) 10 ml IV PRN PRN PRN Reason: LINE FLUSH Exam - Constitutional Vitals: Temp Pulse Resp BP Pulse Ox 98 F 70 16 156/103 99 03/20/19 04:30 03/20/19 04:30 03/20/19 04:30 03/20/19 04:30 03/20/19 04:30 Results - Labs CBC & Chem 7: 03/20/19 02:53 03/20/19 02:53 Labs: Laboratory Last Values WBC 3.6 K/mm3 (4.5-11.0) L 03/20/19 02:53 RBC 3.96 M/mm3 (3.65-5.03) 03/20/19 02:53 Hgb 13.1 gm/dl (11.8-15.2) 03/20/19 02:53 Hct 39.2 % (35.5-45.6) 03/20/19 02:53 MCV 99 fl (84-94) H 03/20/19 02:53 MCH 33 pg (28-32) H 03/20/19 02:53 MCHC 33 % (32-34) 03/20/19 02:53 RDW 16.6 % (13.2-15.2) H 03/20/19 02:53 Plt Count 192 K/mm3 (140-440) 03/20/19 02:53 Lymph % (Auto) 41.4 % (13.4-35.0) H 03/20/19 02:53 [place] % (Auto) 13.6 % (0.0-7.3) H 03/20/19 02:53 Eos % (Auto) 4.4 % (0.0-4.3) H 03/20/19 02:53 Baso % (Auto) 0.6 % (0.0-1.8) 03/20/19 02:53 Lymph # 1.5 K/mm3 (1.2-5.4) 03/20/19 02:53 [place] # 0.5 K/mm3 (0.0-0.8) 03/20/19 02:53 Eos # 0.2 K/mm3 (0.0-0.4) 03/20/19 02:53 Baso # 0.0 K/mm3 (0.0-0.1) 03/20/19 02:53 Seg Neutrophils % 40.0 % (40.0-70.0) 03/20/19 02:53 Seg Neutrophils # 1.5 K/mm3 (1.8-7.7) L 03/20/19 02:53 Sodium 145 mmol/L (137-145) 03/20/19 02:53 Potassium 3.5 mmol/L (3.6-5.0) L 03/20/19 02:53 Chloride 103.7 mmol/L (98-107) 03/20/19 02:53 Carbon Dioxide 25 mmol/L (22-30) 03/20/19 02:53 20 mmol/L 03/20/19 02:53 BUN 7 mg/dL (9-20) L 03/20/19 02:53 0.7 mg/dL (0.8-1.5) L 03/20/19 02:53 Estimated GFR > 60 ml/min 03/20/19 02:53 10 % 03/20/19 02:53 Glucose 96 mg/dL (75-100) 03/20/19 02:53 5.9 % (4-6) 03/20/19 02:53 Calcium 8.9 mg/dL (8.4-10.2) 03/20/19 02:53 0.20 mg/dL (0.1-1.2) 03/20/19 00:05 AST 55 units/L (5-40) H 03/20/19 00:05 ALT 35 units/L (7-56) 03/20/19 00:05 86 units/L (35-129) 03/20/19 00:05 433 units/L (55-170) H 03/20/19 00:05 CK-MB (CK-2) 4.3 ng/mL (0.0-4.0) H 03/20/19 00:05 CK-MB (CK-2) Rel Index 0.9 (0-4) 03/20/19 00:05 < 0.010 ng/mL (0.00-0.029) 03/20/19 00:05 NT-Pro-B Natriuret Pep < 5 pg/mL (0-900) 03/20/19 00:05 6.4 g/dL (6.3-8.2) 03/20/19 00:05 3.8 g/dL (3.9-5) L 03/20/19 00:05 1.5 % 03/20/19 00:05 Triglycerides 91 mg/dL (2-149) 03/20/19 02:53 Cholesterol 185 mg/dL (50-199) 03/20/19 02:53 106 mg/dL (50-130) 03/20/19 02:53 77 mg/dL (40-59) H 03/20/19 02:53 2.40 % 03/20/19 02:53 Salicylates < 0.3 mg/dL (2.8-20.0) L 03/20/19 00:05 Presumptive negative 03/20/19 04:37 Presumptive negative 03/20/19 04:37 Acetaminophen < 5.0 ug/mL (10.0-30.0) L 03/20/19 00:05 Ur Barbiturates Screen Presumptive negative 03/20/19 04:37 Ur Phencyclidine Scrn Presumptive negative 03/20/19 04:37 Ur Amphetamines Screen Presumptive negative 03/20/19 04:37 U Benzodiazepines Scrn Presumptive negative 03/20/19 04:37 Presumptive positive 03/20/19 04:37 U Marijuana (THC) Screen Presumptive positive 03/20/19 04:37 Plasma/Serum Alcohol 0.16 % (0-0.07) H 03/20/19 00:05 Assessment and Plan Assessment and plan: 53 -year-old man with a history of hypertension, CHF, asthma, prostate cancer, seizure, depression comes to the emergency room with complaints of chest pain. Pain is in the epigastric area is which is located in the epigastric area started yesterday which she described as achy constant pain. He also lost his job 2 weeks ago and is now suicidal, has a plan to shoot himself. He had a stress test done in October of this year. Agree with plan as stated above, in addition consult psych, cardiology
[2019-03-20 03:09] LABS: Basophils % (Auto) 0.6 % (0.0-1.8); Eosinophils # (Auto) 0.2 K/mm3 (0.0-0.4); Eosinophils % (Auto) 4.4 % (0.0-4.3); Hematocrit 39.2 % (35.5-45.6); Hemoglobin 13.1 gm/dl (11.8-15.2); Lymphocytes # (Auto) 1.5 K/mm3 (1.2-5.4); Lymphocytes % (Auto) 41.4 % (13.4-35.0); Mean Corpuscular HGB Conc 33 % (32-34); Mean Corpuscular Volume 99 fl (84-94); Monocytes # (Auto) 0.5 K/mm3 (0.0-0.8); Monocytes % (Auto) 13.6 % (0.0-7.3); Platelet Count 192 K/mm3 (140-440); Red Blood Count 3.96 M/mm3 (3.65-5.03); Red Cell Distribution Width 16.6 % (13.2-15.2)
[2019-03-20 03:40] LABS: BUN/Creatinine Ratio 10; Blood Urea Nitrogen 7 mg/dL (9-20); Calcium 8.9 mg/dL (8.4-10.2); Hemolysis Index 5
[2019-03-20] MEDS ORDERED: PROAIR IH PRN (04:07)
[2019-03-20] MEDS ORDERED: PROVENTIL IH PRN (04:29)
[2019-03-20] MEDS ORDERED: ATIVAN ONE (04:31)
[2019-03-20] MEDS: ATIVAN IV PRN ×2 (04:34→17:50)
[2019-03-20 04:41] LABS: Chol/HDL Ratio 2.4 %
[2019-03-20 04:51] LABS: Amphetamine Screen,Urine PRESUMPTIVE NEGATIVE; Benzodiazepines Screen,Urine PRESUMPTIVE NEGATIVE; Methadone Screen,Urine PRESUMPTIVE NEGATIVE; Opiate Screen,Urine PRESUMPTIVE NEGATIVE
[2019-03-20 05:13] LABS: Cannabinoid Screen,Urine PRESUMPTIVE POSITIVE; Cocaine Screen,Urine PRESUMPTIVE POSITIVE
[2019-03-20 06:11] LABS: Creatine Kinase MB 3.8 ng/mL (0.0-4.0)
[2019-03-20] MEDS: MORPHINE IV PRN ×2 (08:45→20:49)
[2019-03-20] MEDS ORDERED: ZESTRIL PO SCH (10:00)
[2019-03-20] MEDS ORDERED: LOVENOX SUB-Q SCH (10:00)
[2019-03-20] MEDS ORDERED: BUMEX PO SCH (10:00)
[2019-03-20] MEDS ORDERED: LASIX PO SCH ×2 (10:00)
--- NOTE | 2019-03-20 10:47 | Consultation ---
History of Present Illness Consult date: 03/20/19 Requesting physician: CLIVE MOREAU Consult reason: chest pain History of present illness: The patient is a 53-year-old male with a past medical history of HTN, asthma, seizure, cocaine use, ETOH use, psych d/o. He presented with complaints of chest pain and generalized pain which he believes is secondary to gout. He also reports some "leg edema" and states that he has a history of "congestive heart failure" which was diagnosed at [facility] [place] in the emergency department per pt report. Pt's chest pain is an intermittent midsternal aching which is reproducible with palpation of the sternum. He denies any SOB, palpitations, n/v, diaphoresis, dizziness or syncope. Pt does admit to ongoing cocaine use but he states that he has "memory lapses" and does not recall when he last used illicit drugs. Per [facility] documentation, pt was evaluated in ED on 03/07/2019 for evaluation of seizure will fall at home. Pt states he was treated with IV lasix and he believes this is what prompted his seizure. Head CT on 03/07/2019 was normal. In the ED here at [facility], pt endorsed suicidal ideation and was placed on 1013 psych hold. Lexiscan MPI stress test done 10/2018 was negative. Echo done 10/2018 showed EF 45-50%, mild LVH. Past History Past Medical History: heart failure, hyperthyroidism, seizures Past Surgical History: No surgical history Social history: alcohol abuse, other (cocaine use) Family history: no significant family history Medications and Allergies Allergies Allergy/AdvReac Type Severity Reaction Status Date / Time acetaminophen [From Tylenol] Allergy Unknown Verified 03/20/19 03:00 aspirin Allergy Unknown Verified 03/19/19 23:11 furosemide [From Lasix] Allergy Unknown Verified 03/19/19 23:16 ibuprofen [From Motrin] Allergy Unknown Verified 03/19/19 23:11 Penicillins Allergy Hives Verified 11/17/18 00:21 Active Meds: Active Medications Albuterol (Proventil) 2.5 mg IH Q4HRT PRN PRN Reason: Shortness Of Breath Amlodipine Besylate (Norvasc) 10 mg PO QDAY SALTY Bumetanide (Bumex) 1 mg PO QDAY SALTY Enoxaparin Sodium (Lovenox) 40 mg SUB-Q QDAY@1000 SALTY Guaifenesin (Mucinex Er) 600 mg PO BID [facility] Lisinopril (Zestril) 40 mg PO DAILY [facility] Lorazepam (Ativan) 2 mg IV Q1HR PRN PRN Reason: CIWA-Ar 8-15 Last Admin: 03/20/19 04:34 Dose: 2 mg Documented by: Morphine Sulfate (Morphine) 2 mg IV Q4H PRN PRN Reason: Pain, Moderate (4-6) Last Admin: 03/20/19 08:45 Dose: 2 mg Documented by: Ondansetron HCl (Zofran) 4 mg IV Q8H PRN PRN Reason: Nausea And Vomiting Sodium Chloride (Sodium Chloride Flush Syringe 10 Ml) 10 ml IV BID [facility] Sodium Chloride (Sodium Chloride Flush Syringe 10 Ml) 10 ml IV PRN PRN PRN Reason: LINE FLUSH Review of Systems Constitutional: no fever, no chills, no sweats Ears, nose, mouth and throat: no ear pain, no nose pain, no sinus pressure, no sinus pain Cardiovascular: chest pain, edema, leg edema, no orthopnea, no palpitations, no rapid/irregular heart beat, no syncope, no lightheadedness, no shortness of breath, no dyspnea on exertion, no high blood pressure Respiratory: no cough, no shortness of breath, no dyspnea on exertion, no conges tion, no wheezing, no pain on inspiration Gastrointestinal: no abdominal pain, no nausea, no vomiting, no diarrhea, no constipation, no change in bowel habits Genitourinary Male: no dysuria, no hematuria, no flank pain, no discharge, no urinary frequency, no urinary hesitancy Musculoskeletal: other (generalized pain), no neck stiffness, no neck pain, no shooting arm pain, no arm numbness/tingling, no low back pain, no shooting leg pain Integumentary: no rash, no pruritis, no redness, no sores, no wounds Neurological: memory loss, no head injury, no paralysis, no weakness, no parathesias, no numbness, no tingling Psychiatric: no anxiety Endocrine: no cold intolerance, no heat intolerance Hematologic/Lymphatic: no easy bruising, no easy bleeding Allergic/Immunologic: no urticaria, no wheezing Physical Examination Vital Signs BP 100/52 03/19/19 23:14 General appearance: no acute distress HEENT: Positive: PERRL, Normocephaly, Mucus Membranes Moist Neck: Positive: neck supple, trachea midline Cardiac: Positive: Reg Rate and Rhythm, S1/S2 Lungs: Positive: Decreased Breath Sounds Neuro: Positive: Grossly Intact Abdomen: Negative: Tender Skin: Negative: Rash Musculoskeletal: No Pain Extremities: Present: +1 Edema (BLE ) Results 03/20/19 02:53 03/20/19 02:53 Cardiac Enzymes 03/20/19 03/20/19 Range/Units 00:05 05:35 AST 55 H (5-40) units/L CK-MB (CK-2) 4.3 H 3.8 (0.0-4.0) ng/mL Lipids 03/20/19 Range/Units 02:53 Triglycerides 91 (2-149) mg/dL Cholesterol 185 (50-199) mg/dL HDL Cholesterol 77 H (40-59) mg/dL Cholesterol/HDL Ratio 2.40 % CBC 03/20/19 03/20/19 Range/Units 00:05 02:53 WBC 3.4 L 3.6 L (4.5-11.0) K/mm3 RBC 3.75 3.96 (3.65-5.03) M/mm3 Hgb 12.4 13.1 (11.8-15.2) gm/dl Hct 36.9 39.2 (35.5-45.6) % Plt Count 193 192 (140-440) K/mm3 Lymph # 1.4 1.5 (1.2-5.4) K/mm3 [place] # 0.5 0.5 (0.0-0.8) K/mm3 Eos # 0.1 0.2 (0.0-0.4) K/mm3 Baso # 0.0 0.0 (0.0-0.1) K/mm3 Comprehensive Metabolic Panel 03/20/19 03/20/19 Range/Units 00:05 02:53 Sodium 145 145 (137-145) mmol/L Potassium 3.2 L 3.5 L (3.6-5.0) mmol/L Chloride 102.9 103.7 (98-107) mmol/L Carbon Dioxide 25 25 (22-30) mmol/L BUN 8 L 7 L (9-20) mg/dL Creatinine 0.8 0.7 L (0.8-1.5) mg/dL Glucose 105 H 96 (75-100) mg/dL Calcium 8.6 8.9 (8.4-10.2) mg/dL AST 55 H (5-40) units/L ALT 35 (7-56) units/L Alkaline Phosphatase 86 (35-129) units/L Total Protein 6.4 (6.3-8.2) g/dL Albumin 3.8 L (3.9-5) g/dL - Imaging and Cardiology Echo: report reviewed ( 10/2018 showed EF 45-50%, mild LVH. ) EKG: report reviewed, image reviewed EKG interpretations - Telemetry EKG Rhythm: Sinus Rhythm - EKG Sinus rhythms and dysrhythmias: sinus rhythm Assessment and Plan AMI ruled out. Pt's chest pain is atypical and reproducible with palpation of the sternum. Lexiscan MPI stress test done 10/2018 was negative. Echo done 10/2018 showed EF 45-50%, mild LVH. Agree with present cardiac management. No plans for additional cardiac w/u at this time. The patient has been seen in conjunction with Dr. Zenia Aviles who agrees with the assessment and plan of care. - Patient Problems (1) Atypical chest pain Current Visit: Yes Status: Acute (2) Alcohol intoxication Current Visit: Yes Status: Acute (3) Suicidal ideation Current Visit: Yes Status: Acute (4) HTN (hypertension) Current Visit: Yes Status: Chronic (5) History of seizures Current Visit: Yes Status: Chronic (6) Cocaine use Current Visit: Yes Status: Chronic (7) Leg swelling Current Visit: Yes Status: Acute
[2019-03-20] MEDS: ZESTRIL PO SCH (11:29)
[2019-03-20] MEDS: LOVENOX SUB-Q SCH (11:29)
[2019-03-20] MEDS: NORVASC PO SCH (11:29)
[2019-03-20] MEDS: MUCINEX ER PO SCH ×2 (11:29→22:50)
[2019-03-20] MEDS: SODIUM CHLORIDE FLUSH SYRINGE 10 ML IV SCH ×2 (11:30→22:51)
--- NOTE | 2019-03-20 14:29 | Consultation ---
History of Present Illness - Reason for Consult Consult date: 03/20/19 Reason for consult: Initial Psychiatric Evaluation - Chief Complaint Chief complaint: "chest pain and generalized pain" - History of Present Psychiatric Illness Patient is a 48-year-old male that presents to the emergency room with chest pain. Patient has a PMHx of CHF, hypertension, asthma, seizure disorder and depression. Patient has a PPHx of schizophrenia, paranoid type and major depressive disorder. Today the patient is guarded during the assessment. He states, " I'm not doing good today." Patient presents lethargic and drowsy. Initially during the assessment the patient falls asleep. Per RN patient verbalized that he has been anxious and agitated throughout the day. Patient received Ativan 2mg at 1750. Current Psychiatric Medications: Unable to Assess. Past Psychiatric History: Unable to Assess. History of Drug/Alcohol Abuse: Unable to Assess. History of Trauma/Abuse: Unable to Assess. Social History: Unable to Assess. Family History of Psychiatric Illness: Unable to Assess. Medications and Allergies Allergies Allergy/AdvReac Type Severity Reaction Status Date / Time acetaminophen [From Tylenol] Allergy Unknown Verified 03/20/19 03:00 aspirin Allergy Unknown Verified 03/19/19 23:11 furosemide [From Lasix] Allergy Unknown Verified 03/19/19 23:16 ibuprofen [From Motrin] Allergy Unknown Verified 03/19/19 23:11 Penicillins Allergy Hives Verified 11/17/18 00:21 Active Meds: Active Medications Albuterol (Proventil) 2.5 mg IH Q4HRT PRN PRN Reason: Shortness Of Breath Amlodipine Besylate (Norvasc) 10 mg PO QDAY [facility] Last Admin: 03/20/19 11:29 Dose: 10 mg Documented by: Bumetanide (Bumex) 1 mg PO BID [facility] Enoxaparin Sodium (Lovenox) 40 mg SUB-Q QDAY@1000 [facility] Last Admin: 03/20/19 11:29 Dose: 40 mg Documented by: Guaifenesin (Mucinex Er) 600 mg PO BID [facility] Last Admin: 03/20/19 11:29 Dose: 600 mg Documented by: Lisinopril (Zestril) 40 mg PO DAILY [facility] Last Admin: 03/20/19 11:29 Dose: 40 mg Documented by: Lorazepam (Ativan) 2 mg IV Q1HR PRN PRN Reason: CIWA-Ar 8-15 Last Admin: 03/20/19 04:34 Dose: 2 mg Documented by: Morphine Sulfate (Morphine) 2 mg IV Q4H PRN PRN Reason: Pain, Moderate (4-6) Last Admin: 03/20/19 08:45 Dose: 2 mg Documented by: Ondansetron HCl (Zofran) 4 mg IV Q8H PRN PRN Reason: Nausea And Vomiting Sodium Chloride (Sodium Chloride Flush Syringe 10 Ml) 10 ml IV BID [facility]TY Last Admin: 03/20/19 11:30 Dose: 10 ml Documented by: Sodium Chloride (Sodium Chloride Flush Syringe 10 Ml) 10 ml IV PRN PRN PRN Reason: LINE FLUSH Mental Status Exam - Vital signs Last Vital Signs Temp 98.4 F 03/20/19 07:45 Pulse 77 03/20/19 13:00 Resp 15 03/20/19 13:27 BP 156/103 03/20/19 12:45 Pulse Ox 97 03/20/19 12:07 - Exam Narrative exam: Mental Status Exam: Appearance: guarded Behavior: poor eye contact Speech: regular rate and tone Mood: " not good" Affect: constricted Thought Process: impoverished Thought Content: unable to assess Motor Activity: laying in the bed Cognition: unable to assess Insight: unable to assess Judgment: unable to assess Results Result Diagrams: 03/20/19 02:53 03/20/19 02:53 Abnormal lab results 03/20/19 03/20/19 03/20/19 Range/Units 00:05 00:05 00:05 WBC 3.4 L (4.5-11.0) K/mm3 MCV 99 H (84-94) fl MCH 33 H (28-32) pg RDW 16.3 H (13.2-15.2) % Lymph % (Auto) 41.5 H (13.4-35.0) % Daniels % (Auto) 15.4 H (0.0-7.3) % Eos % (Auto) (0.0-4.3) % Seg Neutrophils % 38.2 L (40.0-70.0) % Seg Neutrophils # 1.3 L (1.8-7.7) K/mm3 Potassium 3.2 L (3.6-5.0) mmol/L BUN 8 L (9-20) mg/dL Creatinine (0.8-1.5) mg/dL Glucose 105 H (75-100) mg/dL AST 55 H (5-40) units/L Total Creatine Kinase 433 H (55-170) units/L CK-MB (CK-2) 4.3 H (0.0-4.0) ng/mL Albumin 3.8 L (3.9-5) g/dL HDL Cholesterol (40-59) mg/dL Salicylates < 0.3 L (2.8-20.0) mg/dL Acetaminophen (10.0-30.0) ug/mL Plasma/Serum Alcohol (0-0.07) % 03/20/19 03/20/19 03/20/19 Range/Units 00:05 00:05 02:53 WBC (4.5-11.0) K/mm3 MCV (84-94) fl MCH (28-32) pg RDW (13.2-15.2) % Lymph % (Auto) (13.4-35.0) % Daniels % (Auto) (0.0-7.3) % Eos % (Auto) (0.0-4.3) % Seg Neutrophils % (40.0-70.0) % Seg Neutrophils # (1.8-7.7) K/mm3 Potassium (3.6-5.0) mmol/L BUN (9-20) mg/dL Creatinine (0.8-1.5) mg/dL Glucose (75-100) mg/dL AST (5-40) units/L Total Creatine Kinase (55-170) units/L CK-MB (CK-2) (0.0-4.0) ng/mL Albumin (3.9-5) g/dL HDL Cholesterol 77 H (40-59) mg/dL Salicylates (2.8-20.0) mg/dL Acetaminophen < 5.0 L (10.0-30.0) ug/mL Plasma/Serum Alcohol 0.16 H (0-0.07) % 03/20/19 03/20/19 03/20/19 Range/Units 02:53 02:53 05:35 WBC 3.6 L (4.5-11.0) K/mm3 MCV 99 H (84-94) fl MCH 33 H (28-32) pg RDW 16.6 H (13.2-15.2) % Lymph % (Auto) 41.4 H (13.4-35.0) % Daniels % (Auto) 13.6 H (0.0-7.3) % Eos % (Auto) 4.4 H (0.0-4.3) % Seg Neutrophils % (40.0-70.0) % Seg Neutrophils # 1.5 L (1.8-7.7) K/mm3 Potassium 3.5 L (3.6-5.0) mmol/L BUN 7 L (9-20) mg/dL Creatinine 0.7 L (0.8-1.5) mg/dL Glucose (75-100) mg/dL AST (5-40) units/L Total Creatine Kinase 378 H (55-170) units/L CK-MB (CK-2) (0.0-4.0) ng/mL Albumin (3.9-5) g/dL HDL Cholesterol (40-59) mg/dL Salicylates (2.8-20.0) mg/dL Acetaminophen (10.0-30.0) ug/mL Plasma/Serum Alcohol (0-0.07) % All other labs normal. Assessment and Plan Assessment and plan: Impression: PPHx schizophrenia and major depressive disorder. Today the patient is guarded during the assessment . He is lethargic/drowsy, therefore provider is unable to fully assess. Recommendation/Plan: 1. Will reassess in 24 hours. Disposition: Will reassess in 24 hours to determine proper disposition. Will staff with Dr. Jose Gupta.
[2019-03-20 14:32] LABS: Creatine Kinase MB 3.1 ng/mL (0.0-4.0)
--- NOTE | 2019-03-20 19:14 | Event Note ---
Date: 03/20/19 Patient reevaluated Chest pain -atypical Costochondritis Suicidal ideation-on 1012 Cocaine and THC abuse Sleeping all the time Discharge when cleared by MH
[2019-03-20] MEDS ORDERED: NACL 0.9% 1000 ML 1,000 ML IV SCH (20:00)
[2019-03-20] MEDS: APRESOLINE IV PRN (22:50)
[2019-03-20] MEDS: BUMEX PO SCH (22:50)
[2019-03-21 04:57] LABS: Hematocrit 43.2 % (35.5-45.6); Hemoglobin 14.7 gm/dl (11.8-15.2); Mean Corpuscular HGB Conc 34 % (32-34); Mean Corpuscular Volume 98 fl (84-94); Platelet Count 220 K/mm3 (140-440); Red Cell Distribution Width 16.2 % (13.2-15.2)
[2019-03-21 05:19] LABS: Alanine Aminotransferase 34 units/L (7-56); Albumin 3.9 g/dL (3.9-5); BUN/Creatinine Ratio 10; Blood Urea Nitrogen 7 mg/dL (9-20); Hemolysis Index 13
[2019-03-21] MEDS: MORPHINE IV PRN ×3 (06:16→20:12)
[2019-03-21 06:37] LABS: Basophils % (Manual) 0 % (0.0-1.8); Total Cells Counted 100
[2019-03-21 06:38] LABS: Platelet Estimate Consistent w Auto; RBC Morphology Normal
[2019-03-21] MEDS: MUCINEX ER PO SCH ×2 (10:19→22:11)
[2019-03-21] MEDS: LOVENOX SUB-Q SCH (10:19)
[2019-03-21] MEDS: SODIUM CHLORIDE FLUSH SYRINGE 10 ML IV SCH ×2 (10:19→22:11)
[2019-03-21] MEDS: NORVASC PO SCH (10:19)
[2019-03-21] MEDS: ZESTRIL PO SCH (10:19)
[2019-03-21] MEDS: BUMEX PO SCH ×2 (10:27→22:11)
--- NOTE | 2019-03-21 12:51 | Progress Note ---
Assessment and Plan AMI ruled out. Pt's chest pain is atypical and reproducible with palpation of the sternum. Lexiscan MPI stress test done 10/2018 was negative. Echo done 10/2018 showed EF 45-50%, mild LVH. Agree with present cardiac management. Cessation of illicit drug use encouraged. No plans for additional cardiac w/u at this time. Will sign off. The patient has been seen in conjunction with Dr. Murillo who agrees with the assessment and plan of care. - Patient Problems (1) Atypical chest pain Current Visit: Yes Status: Acute (2) Alcohol intoxication Current Visit: Yes Status: Acute (3) Suicidal ideation Current Visit: Yes Status: Acute (4) HTN (hypertension) Current Visit: Yes Status: Chronic (5) History of seizures Current Visit: Yes Status: Chronic (6) Cocaine use Current Visit: Yes Status: Chronic (7) Leg swelling Current Visit: Yes Status: Acute Subjective Date of service: 03/21/19 Principal diagnosis: cp Interval history: pt resting in bed, c/o generalized pain. in SR on tele. Objective Last Vital Signs Temp 98.6 F 03/21/19 08:56 Pulse 88 03/21/19 08:56 Resp 17 03/21/19 10:00 BP 131/96 03/21/19 08:56 Pulse Ox 94 03/21/19 08:56 - Physical Examination HEENT: Positive: PERRL, Normocephaly, Mucus Membranes Moist Neck: Positive: neck supple, trachea midline Cardiac: Positive: Reg Rate and Rhythm, S1/S2 Lungs: Positive: Decreased Breath Sounds Neuro: Positive: Grossly Intact Abdomen: Negative: Tender Skin: Negative: Rash Musculoskeletal: No Pain Extremities: Present: +1 Edema (BLE ) - Labs and Meds Cardiac Enzymes 03/20/19 03/21/19 Range/Units 13:36 04:17 AST 37 (5-40) units/L CK-MB (CK-2) 3.1 (0.0-4.0) ng/mL CBC 03/21/19 Range/Units 04:17 WBC 3.7 L (4.5-11.0) K/mm3 RBC 4.40 (3.65-5.03) M/mm3 Hgb 14.7 (11.8-15.2) gm/dl Hct 43.2 (35.5-45.6) % Plt Count 220 (140-440) K/mm3 Comprehensive Metabolic Panel 03/21/19 Range/Units 04:17 Sodium 140 (137-145) mmol/L Potassium 3.3 L (3.6-5.0) mmol/L Chloride 99.6 (98-107) mmol/L Carbon Dioxide 27 (22-30) mmol/L BUN 7 L (9-20) mg/dL Creatinine 0.7 L (0.8-1.5) mg/dL Glucose 103 H (75-100) mg/dL Calcium 9.0 (8.4-10.2) mg/dL AST 37 (5-40) units/L ALT 34 (7-56) units/L Alkaline Phosphatase 79 (35-129) units/L Total Protein 7.4 (6.3-8.2) g/dL Albumin 3.9 (3.9-5) g/dL - Imaging and Cardiology EKG: report reviewed, image reviewed Echo: report reviewed ( 10/2018 showed EF 45-50%, mild LVH. ) - EKG Sinus rhythms and dysrhythmias: sinus rhythm
--- NOTE | 2019-03-21 13:42 | Progress Note ---
Subjective - Reason for Consult Consult date: 03/21/19 Reason for consult: Psychiatry Follow-up - Chief Complaint Chief complaint: "I have lot of medical issues" 48-year-old male that presents to the emergency room with chest pain. Psychiatry was consulted to see the patient from SI's. Today the patient was somewhat irritated during the assessment. He sated that he is dealing with several medical issues. He stated that he does not have adequate insurance and is currently homeless. He stated that he feel helpless and worthless because he cannot take care of himself. He acknowledged that he may have endorsed SI's to staff. He stated that he has a jx of depression and took medication in the past. He stated that he attempted suicide several years ago when asked. He rate his depression 8/10, with 10 being the worse. He denies HI's and AVH's. He would not confirm or deny SI's. He acknowledged a poor appetite and erratic sleep. He would not engage me the provider reference recreational drug use and alcohol consumption (etoh). Mental Status Exam - Vital signs Last Vital Signs Temp 98.6 F 03/21/19 08:56 Pulse 88 03/21/19 08:56 Resp 17 03/21/19 10:00 BP 131/96 03/21/19 08:56 Pulse Ox 94 03/21/19 08:56 - Exam Narrative exam: MSE: Appearance: calm Behavior: regular eye contact Speech: regular rate and tone Mood: "depressed" Affect: congruent to mood Thought Process: linear Thought Content: denies HI's and AVH's Motor Activity: ambulatory Cognition: A/O x3 Insight: fair Judgment: variable Assessment and Plan Impression: MDD. Alcohol Use DO. Substance Use DO (cocaine). Cannabis Use DO. Today the patient cooperative, but somewhat irritated during the assessment. DDx: Substance Induced Mood DO Recommendation/Plan: Continue 1013 and Start Remeron 15 mg PO HS for depression. Discussed possible suicidality/medication induced aaron with the patient reference Remeron, he verbalized understanding. Consulted Case Mgmt. Dispo: Proper dispo will be determined once the patient is medically clear. Staffed with Dr. Jose Gupta.
[2019-03-21] MEDS: APRESOLINE IV PRN (20:42)
[2019-03-21] MEDS: REMERON PO SCH (22:11)
[2019-03-22] MEDS: BUMEX PO SCH ×2 (09:38→21:20)
[2019-03-22] MEDS: MUCINEX ER PO SCH ×2 (09:38→21:20)
[2019-03-22] MEDS: LOVENOX SUB-Q SCH (09:39)
[2019-03-22] MEDS: NORVASC PO SCH (09:40)
[2019-03-22] MEDS: ZESTRIL PO SCH (09:40)
[2019-03-22] MEDS: SODIUM CHLORIDE FLUSH SYRINGE 10 ML IV SCH ×2 (09:41→21:20)
[2019-03-22] MEDS: MORPHINE IV PRN ×2 (10:13→21:21)
--- NOTE | 2019-03-22 10:37 | Progress Note ---
Subjective - Reason for Consult Consult date: 03/22/19 Reason for consult: Psychiatry Follow-up - Chief Complaint Chief complaint: "I'm okay" 48-year-old male that presents to the emergency room with chest pain. Psychiatry was consulted to see the patient from SI's. Today the patient was somewhat guarded during the assessment. He wasn't that engaging throughout the interview. He stated, 'I am okay " when asked about his mental health. He stated that he did sleep last night. He would not confirm or deny SI's when asked. He denies HI's and AVH's. He denies any side effects of his medication. Mental Status Exam - Vital signs Last Vital Signs Temp 98.8 F 03/22/19 05:19 Pulse 84 03/22/19 09:40 Resp 20 03/22/19 10:13 BP 131/88 03/22/19 09:40 Pulse Ox 96 03/22/19 09:08 - Exam Narrative exam: MSE: Appearance: calm Behavior: regular eye contact Speech: regular rate and tone Mood: somewhat guarded Affect: congruent to mood Thought Process: circumstantial Thought Content: denies HI's and AVH's Motor Activity: ambulatory Cognition: A/O x3 Insight: variable to fair Judgment: variable to fair Assessment and Plan Impression: MDD. Alcohol Use DO. Substance Use DO (cocaine). Cannabis Use DO. Today the patient was somewhat guarded during the assessment. DDx: Substance Induced Mood DO Recommendation/Plan: Continue 1013 and Remeron 15 mg PO HS for depression. Discussed possible suicidality/medication induced aaron with the patient reference [place], he verbalized understanding. Consulted Case Mgmt. Dispo: Proper dispo will be determined once the patient is medically clear. Will staff with Dr. Jose Gupta.
--- NOTE | 2019-03-22 17:07 | Progress Note ---
Assessment and Plan 1.Chest pain -atypical --Costochondritis 2. Suicidal ideation-on 101 Will discharge when cleared by Medically cleared to go home or psych facility 3. Cocaine and THC abuse COunselled 4.ETOH dependence [facility] protocol if necessary Discharge when cleared by Medically cleared for discharge Subjective Date of service: 03/21/19 Principal diagnosis: cp Interval history: Patient is a 48-year-old male with PMHx of CHF, hypertension, asthma, seizure disorder who presents to the ER with complaint of chest pain. Patient states that the chest pain is an intermittent pain located in the left substernal area without radiation. Patient denies previous chest pain, he complaints of lower extremity edema that is been going on for 2 days. Patient was very depressed in the ER he states that "he plan on shooting himself in the head "patient was placed in suicidal watch and admitted for evaluation of chest pain. Objective - Constitutional Vitals: Vital Signs - 12hr 03/22/19 03/22/19 03/22/19 05:19 09:08 09:40 Temperature 98.8 F Pulse Rate 84 84 Respiratory 18 Rate Blood Pressure 131/88 131/88 O2 Sat by Pulse 94 96 Oximetry 03/22/19 03/22/19 03/22/19 10:00 10:13 11:45 Temperature 98.7 F Pulse Rate 82 Respiratory 20 20 20 Rate Blood Pressure 112/80 O2 Sat by Pulse 96 95 Oximetry 03/22/19 16:54 Temperature 99.0 F Pulse Rate 91 H Respiratory 20 Rate Blood Pressure 127/77 O2 Sat by Pulse 94 Oximetry General appearance: Present: no acute distress, well-nourished - EENT Eyes: PERRL, EOM intact ENT: hearing intact, clear oral mucosa Ears: bilateral: normal - Neck Neck: supple, normal ROM - Respiratory Respiratory effort: normal Respiratory: bilateral: CTA - Breasts Breasts: normal - Cardiovascular Heart rate: 78 Rhythm: regular Heart Sounds: Present: S1 & S2. Absent: gallop, rub Extremities: pulses intact, No edema, normal color, Full ROM - Gastrointestinal General gastrointestinal: Present: soft, non-tender, non-distended, normal bowel sounds - Genitourinary Male genitourinary: normal - Integumentary Integumentary: clear, warm, dry - Musculoskeletal Musculoskeletal: 1, strength equal bilaterally - Neurologic Neurologic: moves all extremities - Psychiatric Psychiatric: memory intact, appropriate mood/affect, intact judgment & insight - Labs CBC & Chem 7: 03/21/19 04:17 03/21/19 04:17
--- NOTE | 2019-03-22 17:13 | Progress Note ---
Assessment and Plan 1.Chest pain -atypical --Costochondritis 2. Suicidal ideation-on 101 Will discharge when cleared by Medically cleared to go home or psych facility 3. Cocaine and THC abuse COunselled 4.ETOH dependence [facility] protocol if necessary 5.Hypokalemia supplemented Discharge when cleared by Medically cleared for discharge Subjective Date of service: 03/22/19 Principal diagnosis: cp Interval history: Patient is a 48-year-old male with PMHx of CHF, hypertension, asthma, seizure disorder who presents to the ER with complaint of chest pain. Patient states that the chest pain is an intermittent pain located in the left substernal area without radiation. Patient denies previous chest pain, he complaints of lower extremity edema that is been going on for 2 days. Patient was very depressed in the ER he states that "he plan on shooting himself in the head "patient was placed in suicidal watch and admitted for evaluation of chest pain. Objective - Constitutional Vitals: Vital Signs - 12hr 03/22/19 03/22/19 03/22/19 05:19 09:08 09:40 Temperature 98.8 F Pulse Rate 84 84 Respiratory 18 Rate Blood Pressure 131/88 131/88 O2 Sat by Pulse 94 96 Oximetry 03/22/19 03/22/19 03/22/19 10:00 10:13 11:45 Temperature 98.7 F Pulse Rate 82 Respiratory 20 20 20 Rate Blood Pressure 112/80 O2 Sat by Pulse 96 95 Oximetry 03/22/19 16:54 Temperature 99.0 F Pulse Rate 91 H Respiratory 20 Rate Blood Pressure 127/77 O2 Sat by Pulse 94 Oximetry General appearance: Present: no acute distress, well-nourished - EENT Eyes: PERRL, EOM intact ENT: hearing intact, clear oral mucosa Ears: bilateral: normal - Neck Neck: supple, normal ROM - Respiratory Respiratory effort: normal Respiratory: bilateral: CTA - Breasts Breasts: normal - Cardiovascular Heart rate: 78 Rhythm: regular Heart Sounds: Present: S1 & S2. Absent: gallop, rub Extremities: no ischemia, pulses intact, No edema, normal color, Full ROM - Gastrointestinal General gastrointestinal: Present: soft, non-tender, non-distended, normal bowel sounds - Genitourinary Male genitourinary: normal - Integumentary Integumentary: clear, warm, dry - Musculoskeletal Musculoskeletal: 1, strength equal bilaterally - Neurologic Neurologic: moves all extremities - Psychiatric Psychiatric: memory intact, appropriate mood/affect, intact judgment & insight - Labs CBC & Chem 7: 03/21/19 04:17 03/21/19 04:17
[2019-03-22] MEDS ORDERED: K-DUR PO ONE (18:14)
[2019-03-22] MEDS: REMERON PO SCH (21:20)
[2019-03-23 07:03] LABS: Hematocrit 44.1 % (35.5-45.6); Hemoglobin 14.9 gm/dl (11.8-15.2); Mean Corpuscular HGB Conc 34 % (32-34); Mean Corpuscular Volume 99 fl (84-94); Platelet Count 243 K/mm3 (140-440); Red Blood Count 4.47 M/mm3 (3.65-5.03)
[2019-03-23 07:23] LABS: Alanine Aminotransferase 30 units/L (7-56); Albumin 3.9 g/dL (3.9-5); BUN/Creatinine Ratio 15; Blood Urea Nitrogen 15 mg/dL (9-20); Calcium 8.8 mg/dL (8.4-10.2); Hemolysis Index 10
[2019-03-23] MEDS: BUMEX PO SCH ×2 (09:41→21:37)
[2019-03-23] MEDS: NORVASC PO SCH (09:41)
[2019-03-23] MEDS: LOVENOX SUB-Q SCH (09:41)
[2019-03-23] MEDS: MUCINEX ER PO SCH ×2 (09:41→21:37)
[2019-03-23] MEDS: ZESTRIL PO SCH (09:41)
[2019-03-23] MEDS: SODIUM CHLORIDE FLUSH SYRINGE 10 ML IV SCH ×2 (09:44→21:37)
[2019-03-23] MEDS: ROXICODONE PO PRN ×3 (09:48→21:42)
--- NOTE | 2019-03-23 10:42 | Progress Note ---
Subjective - Reason for Consult Consult date: 03/23/19 Reason for consult: Psychiatry Follow-up - Chief Complaint Chief complaint: "I feel better" 48-year-old male that presents to the emergency room with chest pain. Psychiatry was consulted to see the patient from 's. Today the patient was calm and cooperative during the assessment. He stated that he was seen by case mgmt yesterday and given referral. He stated, 'I appreciated that." He stated that he look forward to being discharged so he can get "things together." He denies SI/HI's and AVH's. He denies any side effects of his medication. Mental Status Exam - Vital signs Last Vital Signs Temp 98.8 F 03/23/19 05:13 Pulse 86 03/23/19 05:13 Resp 15 03/23/19 05:13 BP 140/98 03/23/19 05:13 Pulse Ox 95 03/23/19 05:13 - Exam Narrative exam: MSE: Appearance: calm, cooperative Behavior: regular eye contact Speech: regular rate and tone Mood: "better" Affect: congruent to mood Thought Process: linear Thought Content: denies SI/HI's and AVH's Motor Activity: ambulatory Cognition: A/O x3 Insight: fair Judgment: fair Assessment and Plan Impression: MDD. Alcohol Use DO. Substance Use DO (cocaine). Cannabis Use DO. Today the patient was calm and cooperative during the assessment. DDx: Substance Induced Mood DO Recommendation/Plan: Reevaluate the patient's 1013 in 24 hours. Continue Remeron 15 mg PO HS for depression. Discussed possible suicidality/medication induced aaron with the patient reference Remeron, he verbalized understanding. Consulted Case Mgmt. Dispo: If the patient's 1013 is rescinded in 24 hours, he can follow up with [facility] for outpatient psy services. Will staff with Dr. Jose Gupta.
[2019-03-23] MEDS: COLCHICINE PO SCH ×2 (11:11→21:37)
[2019-03-23 11:57] LABS: Basophils % (Manual) 0 % (0.0-1.8); Total Cells Counted 100
[2019-03-23 11:58] LABS: Platelet Estimate Consistent w Auto; RBC Morphology Normal
[2019-03-23] MEDS: INDOCIN PO SCH (17:41)
--- NOTE | 2019-03-23 17:57 | Progress Note ---
Assessment and Plan 1.Chest pain -atypical --Costochondritis 2. Suicidal ideation-on 1013 Will discharge when cleared by Medically cleared to go home or psych facility 3. Cocaine and THC abuse COunselled 4.ETOH dependence [facility] protocol if necessary 5.Hypokalemia supplemented Discharge when cleared by MH Medically cleared for discharge Brief history: Patient is a 48-year-old male with PMHx of CHF, hypertension, asthma, seizure disorder who presented to the ER with complaint of intermittent chest pain located in the left substernal area without radiation and lower extremity edema that is been going on for 2 days. Patient was very depressed in the ER he states that "he plan on shooting himself in the head "patient was placed in suicidal watch and admitted for evaluation of chest pain. Subjective Date of service: 03/23/19 Principal diagnosis: cp Interval history: Patient seen and examined. Medical records and medication list reviewed. No acute event overnight noted by the RN. Patient denies any chest pain or difficulty breathing. Patient is tolerating diet. Discussed plan of care at bedside with patient. Objective - Exam Narrative Exam: GENERAL: well-developed and well-nourished -Russian male lying on bed appeared to be in no discomfort. HEENT: Normocephalic. Atraumatic. No conjunctival congestion or icterus. Patient has moist mucous membranes. NECK: Supple. Trachea midline. CHEST/LUNGS: Clear to auscultated bilaterally, breathing nonlabored. No wheezes crackles or rhonchi. HEART/CARDIOVASCULAR: Regular in rate and rhythm. S1 and S2 positive. ABDOMEN: Abdomen is soft, nontender. Patient has normal bowel sounds. SKIN: There is no rash. Warm and dry. NEURO: No focal motor deficit. Follows command. MUSCULOSKELETAL: No joint effusion or tenderness. EXTRIMITY: No edema, no cyanosis or clubbing. PSYCH: Cooperative. - Constitutional Vitals: Vital Signs - 12hr 03/23/19 10:53 Temperature 98.4 F Pulse Rate 82 Respiratory 18 Rate Blood Pressure 146/89 O2 Sat by Pulse 94 Oximetry - Labs CBC & Chem 7: 03/23/19 06:22 03/23/19 06:22 Labs: Abnormal lab results 03/23/19 03/23/19 Range/Units 06:22 06:22 WBC 4.1 L (4.5-11.0) K/mm3 MCV 99 H (84-94) fl MCH 33 H (28-32) pg RDW 16.0 H (13.2-15.2) % Seg Neuts % (Manual) 33.0 L (40.0-70.0) % Lymphocytes % (Manual) 46.0 H (13.4-35.0) % Monocytes % (Manual) 14.0 H (0.0-7.3) % Eosinophils % (Manual) 5.0 H (0.0-4.3) % Seg Neutrophils # Man 1.4 L (1.8-7.7) K/mm3 Glucose 119 H (75-100) mg/dL
[2019-03-23] MEDS: REMERON PO SCH (21:37)
[2019-03-24] MEDS: LOVENOX SUB-Q SCH (10:21)
[2019-03-24] MEDS: INDOCIN PO SCH (10:23)
[2019-03-24] MEDS: NORVASC PO SCH (10:23)
[2019-03-24] MEDS: MUCINEX ER PO SCH (10:23)
[2019-03-24] MEDS: BUMEX PO SCH (10:24)
[2019-03-24] MEDS: COLCHICINE PO SCH (10:24)
[2019-03-24] MEDS: ZESTRIL PO SCH (10:25)
[2019-03-24] MEDS: SODIUM CHLORIDE FLUSH SYRINGE 10 ML IV SCH (10:25)
--- NOTE | 2019-03-24 10:29 | Progress Note ---
Subjective - Reason for Consult Consult date: 03/24/19 Reason for consult: Psychiatry Follow-up - Chief Complaint Chief complaint: "Hello" 48-year-old male that presents to the emergency room with chest pain. Psychiatry was consulted to see the patient for SI's. Today the patient was calm and cooperative during the assessment. He stated that he feel better physically this morning. He stated that he follow up with outpatient psy services when discharged. He denies SI/HI's and AVH's. He denies any side effects of his medication. Mental Status Exam - Vital signs Last Vital Signs Temp 97.9 F 03/24/19 06:44 Pulse 87 03/24/19 06:44 Resp 20 03/24/19 06:44 BP 133/83 03/24/19 06:44 Pulse Ox 98 03/24/19 06:44 - Exam Narrative exam: MSE: Appearance: calm, cooperative Behavior: regular eye contact Speech: regular rate and tone Mood: "better" Affect: congruent to mood Thought Process: linear Thought Content: denies SI/HI's and AVH's Motor Activity: ambulatory Cognition: A/O x3 Insight: appropriate Judgment: appropriate Assessment and Plan Impression: MDD. Alcohol Use DO. Substance Use DO (cocaine). Cannabis Use DO. Today the patient was calm and cooperative during the assessment. The patient is no threat to self. DDx: Substance Induced Mood DO Recommendation/Plan: Rescind 1013. Continue Remeron 15 mg PO HS for depression. Discussed possible suicidality/medication induced aaron with the patient referen ce Remeron, he verbalized understanding. Discussed the importance to abstain from recreational drug use, he verbalized understanding. Dispo: The patient can follow up with [facility] for outpatient osy services. Will staff with Dr. Jose Gupta.
[2019-03-24] MEDS: ROXICODONE PO PRN (10:33)
[2019-03-24 11:40] VITALS: BP 122/85
--- NOTE | 2019-03-24 12:00 | Discharge Summary ---
Providers - Providers Date of Admission: 03/20/19 02:17 Date of discharge: 03/24/19 Attending physician: MARTINA HARRELL 03/20/19 Consult to Cardiac Rehabilitation [CONS] Routine Reason For Exam: Phase I 03/20/19 05:13 psychiatry consult [Consult to Mental Health] [CONS] Routine Reason For Exam: SI Place consult to:: PSYCH Notified:: Stephanie GARG Phone number called:: Ext. [phone] Was contact made?: Yes If yes, spoke with:: Rachel[facility] health Time called:: 09:45 03/20/19 19:15 Consult to Mental Health [CONS] Routine Reason For Exam: Suicidal ideation Place consult to:: Mental Health Notified:: RN Comment:: Consult called 03/20/19;Patient seen by mental health 03/20/19 03/21/19 13:49 Consult to Case Management [CONS] Stat Services Needed at Discharge: [employer] Notified:: Case mgmt [facility] Condition: Fair Pertinent studies: CXR Hospital course: Brief history: Patient is a 48-year-old male with PMHx of CHF ef 45-50%, hypertension, asthma, seizure disorder not on meds who presented to the ER with complaint of in termittent chest pain located in the left substernal area without radiation and lower extremity edema that is been going on for 2 days. Patient was very depressed in the ER he states that "he plan on shooting himself in the head "patient was placed in suicidal watch and admitted for evaluation of chest pain. Discharge Diagnosis: 1.Chest pain -atypical CXR no infiltrates, Jessica normal, chest pain reproducible with palpation 2d echo showed EF45-50% and exercise stress test was normal on --likely Costochondritis vs cocaine induced 2. Suicidal ideation-rescind 1013 Medically cleared to go home Placed on Remeron 15mg po daily at bedtime Patient will f/u outpt psych following discharge 3. Cocaine and THC abuse, Counselled 4.ETOH dependence, CIWA protocol if necessary 5. Hypokalemia, supplemented 6. BPH, on flomax 7. HTN, stable MH cleared for discharge Medically cleared for discharge Disposition: DC-01 TO HOME OR SELFCARE Time spent for discharge: 34 minutes Core Measure Documentation - Palliative Care Palliative Care/ Comfort Measures: Not Applicable - Core Measures Any of the following diagnoses?: none Exam - Physical Exam Narrative exam: GENERAL: well-developed and well-nourished -[place] male lying on bed appeared to be in no discomfort. HEENT: Normocephalic. Atraumatic. No conjunctival congestion or icterus. Patient has moist mucous membranes. NECK: Supple. Trachea midline. CHEST/LUNGS: Clear to auscultated bilaterally, breathing nonlabored. No wheezes crackles or rhonchi. HEART/CARDIOVASCULAR: Regular in rate and rhythm. S1 and S2 positive. ABDOMEN: Abdomen is soft, nontender. Patient has normal bowel sounds. SKIN: There is no rash. Warm and dry. NEURO: No focal motor deficit. Follows command. MUSCULOSKELETAL: No joint effusion or tenderness. EXTRIMITY: No edema, no cyanosis or clubbing. PSYCH: Cooperative. - Constitutional Vitals: Temp Pulse Resp BP Pulse Ox 98.1 F 72 16 122/85 94 03/24/19 11:36 03/24/19 11:36 03/24/19 11:36 03/24/19 11:36 03/24/19 11:36 Plan Activity: advance as tolerated Weight Bearing Status: Weight Bear as Tolerated Diet: low fat, low salt Follow up with: JOHN [facility] MD NIKKY [Primary Care Provider] - 3-5 Days Prescriptions: Mirtazapine [Remeron 15mg TAB] 15 mg PO QHS #30 tablet Bumetanide [Bumex 1 mg tab] 1 mg PO BID #60 tablet Colchicine 0.6 mg PO BID #60 capsule Tamsulosin [Flomax] 0.4 mg PO DAILY #30 capsule Fluticasone [Flonase] 1 spray INNOSTRIL DAILY 30 Days #1 bottle Indomethacin [Indocin] 50 mg PO Q12HR #60 capsule guaiFENesin ER [Mucinex ER] 600 mg PO BID #60 tablet Albuterol Sulfate [Proair Respiclick] 90 mcg IH Q4-6H 30 Days #1 aer.pow.ba Allopurinol [Zyloprim] 100 mg PO QDAY #30 tablet
== END 2019-03-24 13:37 | disposition home or self-care (01) | DRG 206 ==
LOC: ED 23:04 → 4A 03-20 02:17 → 3A 03-21 21:46
PROVIDERS: ADMIT Internal Medicine; ATTEND Internal Medicine
DX: M94.0 Chondrocostal junction syndrome [Tietze] (principal); I11.0 Hypertensive heart disease with heart failure; I50.9 Heart failure, unspecified; G40.909 Epilepsy, unspecified, not intractable, without status epilepticus; J45.909 Unspecified asthma, uncomplicated; F14.19 Cocaine abuse with unspecified cocaine-induced disorder; E87.6 Hypokalemia; E78.5 Hyperlipidemia, unspecified; F10.229 Alcohol dependence with intoxication, unspecified; M10.9 Gout, unspecified; F32.9 Major depressive disorder, single episode, unspecified; C61 Malignant neoplasm of prostate; Y90.9 Presence of alcohol in blood, level not specified; Z88.0 Allergy status to penicillin; Z88.8 Allergy status to other drugs, medicaments and biological substances; Z88.6 Allergy status to analgesic agent; Z71.51 Drug abuse counseling and surveillance of drug abuser
CPT/HCPCS: 36415; 71045; 80048; 80053; 80061; 80307; 80320; 82550; 82553; 83036; 83735; 83880; 84484; 85007; 85025; 87116; 93005; 93010; G0378; G0480; J0360; J1650; J2060; J2270

== ENCOUNTER 2019-09-01 20:02 | Emergency (ER) | payer MEDICAID ==
--- NOTE | 2019-09-01 20:12 | Emergency Department Report ---
Blank Doc - Documentation Documentation: 54-year-old male that presents with chest pain, sob and bilateral leg swellings. This initial assessment/diagnostic orders/clinical plan/treatment(s) is/are subject to change based on patient's health status, clinical progression and re- assessment by fellow clinical providers in the ED. Further treatment and workup at subsequent clinical providers discretion. Patient/guardians urged not to elope from the ED as their condition may be serious if not clinically assessed and managed. Initial orders include: 1- Patient sent to MAIN ED for further evaluation and treatment 2- labs 3- EKG 4- cXR
[2019-09-01 20:51] LABS: Basophils % (Auto) 0.8 % (0.0-1.8); Eosinophils # (Auto) 0.1 K/mm3 (0.0-0.4); Eosinophils % (Auto) 2.3 % (0.0-4.3); Hemoglobin 14.6 gm/dl (11.8-15.2); Lymphocytes # (Auto) 2.1 K/mm3 (1.2-5.4); Lymphocytes % (Auto) 33.6 % (13.4-35.0); Mean Corpuscular HGB Conc 34 % (32-34); Mean Corpuscular Volume 98 fl (84-94); Monocytes # (Auto) 0.7 K/mm3 (0.0-0.8); Monocytes % (Auto) 11.2 % (0.0-7.3); Platelet Count 227 K/mm3 (140-440); Red Blood Count 4.39 M/mm3 (3.65-5.03); Red Cell Distribution Width 16.2 % (13.2-15.2)
[2019-09-01 20:58] LABS: Partial Thromboplastin Time 26.7 Sec. (24.2-36.6)
[2019-09-01 20:59] LABS: INR 0.86 (0.87-1.13)
--- NOTE | 2019-09-01 21:06 | XRay Report ---
CHEST 2 VIEWS INDICATION: MAIN: Chest Pain SINCE YESTERDAY. COMPARISON: 03/20/2019 FINDINGS: Support devices: None. Heart: Within normal limits. Lungs/pleura: No acute air space or interstitial disease. No pneumothorax. Additional findings: None. IMPRESSION: 1. No acute findings. Signer Name: Guru Tavera MD Signed: 09/01/2019 9:01 PM Workstation Name: [id number]
[2019-09-01 21:09] LABS: BUN/Creatinine Ratio 13; Blood Urea Nitrogen 10 mg/dL (9-20)
[2019-09-01 21:10] LABS: Alanine Aminotransferase 67 units/L (7-56); Albumin 4.3 g/dL (3.9-5); Hemolysis Index 7
[2019-09-01] MEDS ORDERED: BUMETANIDE 1 MG/4 ML INJ IV ONE (21:18)
[2019-09-01] MEDS ORDERED: NITROGLYCERIN 0.4 MG TAB SUBL SL ONE (21:19)
[2019-09-01] MEDS ORDERED: COLCHICINE 0.6 MG CAP PO ONE (21:41)
[2019-09-01] MEDS ORDERED: traMADol 50 MG TAB PO ONE (21:41)
[2019-09-01 22:27] LABS: Bilirubin,Urine NEG (Negative); Blood,Urine SM (Negative); Color,Urine Colorless (Yellow); Protein,Urine <15 mg/dL mg/dL (Negative); Urobilinogen,Urine < 2.0 mg/dL (<2.0)
[2019-09-01 22:36] LABS: Amphetamine Screen,Urine PRESUMPTIVE NEGATIVE; Benzodiazepines Screen,Urine PRESUMPTIVE NEGATIVE; Cannabinoid Screen,Urine PRESUMPTIVE NEGATIVE; Methadone Screen,Urine PRESUMPTIVE NEGATIVE; Opiate Screen,Urine PRESUMPTIVE NEGATIVE
[2019-09-01 22:56] LABS: Cocaine Screen,Urine PRESUMPTIVE POSITIVE
--- NOTE | 2019-09-01 23:18 | Cat Scan Report ---
CTA CHEST WITH IV CONTRAST INDICATION / CLINICAL INFORMATION: chest pain with elevated ddimer. TECHNIQUE: Axial CT images were obtained through the chest after injection of 100 mL Omnipaque 350 IV contrast. 3 plane MIP and/or 3D reconstructions were produced. All CT scans at this location are performed usin g CT dose reduction for HOLLI by means of automated exposure control. COMPARISON: Chest radiograph from earlier the same day FINDINGS: PULMONARY ARTERIES: No pulmonary emboli. THORACIC AORTA: No significant abnormality. HEART: No significant abnormality. PLEURA: No pleural effusion. No pneumothorax. LYMPH NODES: No adenopathy. LUNGS: No acute air space or interstitial disease. ADDITIONAL FINDINGS: None. UPPER ABDOMEN: No acute findings. SKELETAL STRUCTURES: No significant osseous abnormality. IMPRESSION: 1. No CT evidence for pulmonary embolism. 2. No acute findings. Signer Name: Federico Canales MD Signed: 09/01/2019 11:14 PM Workstation Name: [id number]
[2019-09-02] MEDS ORDERED: KETOROLAC 30 MG/1 ML INJ IV ONE ×2 (01:11)
--- NOTE | 2019-09-02 01:18 | Emergency Department Report ---
ED General Adult HPI - General Chief complaint: Chest Pain Stated complaint: CHEST PAIN Time Seen by Provider: 09/01/19 20:11 Source: patient Mode of arrival: Ambulatory Limitations: No Limitations - History of Present Illness Initial comments: Patient is a 54-year-old -Armenian male with a past medical history of hypertension congestive heart failure with LVEF of 45-50% asthma and gout who is complaining of chest pain for last 2 days. Patient states pain is been constant for 2 days straight. States this is a sharp pain in the center of his chest. States he has decreased exercise tolerance and shortness of breath. Patient also states he has some bilateral leg swelling that is worsened. Patient states his last cocaine use was several months ago. Patient states he has been compliant with medications. Patient denies diaphoresis nausea vomiting or cough at this time. Severity scale (0 -10): 9 - Related Data Previous Rx's Medication Instructions Recorded Last Taken Type Albuterol Sulfate [Proair 90 mcg IH Q4-6H 30 Days #1 03/24/19 Unknown Rx Respiclick] aer.pow.ba Allopurinol [Zyloprim] 100 mg PO QDAY #30 tablet 03/24/19 Unknown Rx Colchicine 0.6 mg PO BID #60 capsule 03/24/19 Unknown Rx Fluticasone [Flonase] 1 spray INNOSTRIL DAILY 30 Days #1 03/24/19 Unknown Rx bottle Mirtazapine [Remeron 15mg TAB] 15 mg PO QHS #30 tablet 03/24/19 Unknown Rx Tamsulosin [Flomax] 0.4 mg PO DAILY #30 capsule 03/24/19 Unknown Rx guaiFENesin ER [Mucinex ER] 600 mg PO BID #60 tablet 03/24/19 Unknown Rx Bumetanide [Bumex 1 mg tab] 1 mg PO BID #60 tablet 09/02/19 Unknown Rx Indomethacin [Indocin] 50 mg PO Q12HR #60 capsule 09/02/19 Unknown Rx Allergies Allergy/AdvReac Type Severity Reaction Status Date / Time acetaminophen [From Tylenol] Allergy Unknown Verified 03/20/19 03:00 aspirin Allergy Unknown Verified 03/19/19 23:11 furosemide [From Lasix] Allergy Unknown Verified 03/19/19 23:16 ibuprofen [From Motrin] Allergy Unknown Verified 03/19/19 23:11 Penicillins Allergy Hives Verified 11/17/18 00:21 ED Review of Systems ROS: Stated complaint: CHEST PAIN Other details as noted in HPI Comment: All other systems reviewed and negative Musculoskeletal: joint swelling, arthralgia ED Past Medical Hx - Past Medical History Previous Medical History?: Yes Hx Hypertension: Yes Hx Heart Attack/AMI: No Hx Congestive Heart Failure: Yes Hx Diabetes: No Hx Deep Vein Thrombosis: No Hx Pulmonary Embolism: No Hx Arthritis: No Hx Seizures: Yes Hx Asthma: Yes Hx COPD: No Hx Tuberculosis: No Additional medical history: BPH - Surgical History Past Surgical History?: Yes Hx Coronary Stent: No Hx Pacemaker: No Hx Internal Defibrillator: No Additional Surgical History: Right forearm tendon repair, right lower extremity tendon repair - Social History Smoking Status: Current Some Day Smoker Substance Use Type: Alcohol, Other - Medications Home Medications: Home Medications Medication Instructions Recorded Confirmed Last Taken Type Albuterol Sulfate [Proair 90 mcg IH Q4-6H 30 Days #1 03/24/19 Unknown Rx Respiclick] aer.pow.ba Allopurinol [Zyloprim] 100 mg PO QDAY #30 tablet 03/24/19 Unknown Rx Colchicine 0.6 mg PO BID #60 capsule 03/24/19 Unknown Rx Fluticasone [Flonase] 1 spray INNOSTRIL DAILY 30 Days #1 03/24/19 Unknown Rx bottle Mirtazapine [Remeron 15mg TAB] 15 mg PO QHS #30 tablet 03/24/19 Unknown Rx Tamsulosin [Flomax] 0.4 mg PO DAILY #30 capsule 03/24/19 Unknown Rx guaiFENesin ER [Mucinex ER] 600 mg PO BID #60 tablet 03/24/19 Unknown Rx Bumetanide [Bumex 1 mg tab] 1 mg PO BID #60 tablet 09/02/19 Unknown Rx Indomethacin [Indocin] 50 mg PO Q12HR #60 capsule 09/02/19 Unknown Rx ED Physical Exam - General Limitations: No Limitations General appearance: alert, in no apparent distress - Head Head exam: Present: atraumatic, normocephalic - Eye Eye exam: Present: normal appearance, PERRL, EOMI - ENT ENT exam: Present: mucous membranes moist - Neck Neck exam: Present: normal inspection - Respiratory Respiratory exam: Present: normal lung sounds bilaterally. Absent: respiratory distress, wheezes, rales, rhonchi - Cardiovascular Cardiovascular Exam: Present: regular rate, normal rhythm, normal heart sounds. Absent: systolic murmur, diastolic murmur, rubs, gallop - GI/Abdominal GI/Abdominal exam: Present: soft, normal bowel sounds. Absent: distended, tenderness, guarding, rebound - Rectal Rectal exam: Present: deferred - Extremities Exam Extremities exam: Present: normal inspection, other (2+ edema to the mid calf bilaterally) - Back Exam Back exam: Present: normal inspection - Neurological Exam Neurological exam: Present: alert, oriented X3 - Psychiatric Psychiatric exam: Present: normal affect, normal mood - Skin Skin exam: Present: warm, dry, intact, normal color. Absent: rash ED Course Vital Signs 09/01/19 20:11 Temperature 98.3 F Pulse Rate 104 H Respiratory 18 Rate Blood Pressure 182/113 O2 Sat by Pulse 97 Oximetry ED Medical Decision Making - Lab Data Result diagrams: 09/01/19 20:35 09/01/19 20:35 Lab Results 09/01/19 09/01/19 09/01/19 Range/Units 20:35 20:35 20:35 WBC 6.2 (4.5-11.0) K/mm3 RBC 4.39 (3.65-5.03) M/mm3 Hgb 14.6 (11.8-15.2) gm/dl Hct 43.0 (35.5-45.6) % MCV 98 H (84-94) fl MCH 33 H (28-32) pg MCHC 34 (32-34) % RDW 16.2 H (13.2-15.2) % Plt Count 227 (140-440) K/mm3 Lymph % (Auto) 33.6 (13.4-35.0) % Coles % (Auto) 11.2 H (0.0-7.3) % Eos % (Auto) 2.3 (0.0-4.3) % Baso % (Auto) 0.8 (0.0-1.8) % Lymph # 2.1 (1.2-5.4) K/mm3 Coles # 0.7 (0.0-0.8) K/mm3 Eos # 0.1 (0.0-0.4) K/mm3 Baso # 0.0 (0.0-0.1) K/mm3 Seg Neutrophils % 52.1 (40.0-70.0) % Seg Neutrophils # 3.2 (1.8-7.7) K/mm3 PT 11.7 L (12.2-14.9) Sec. INR 0.86 L (0.87-1.13) APTT 26.7 (24.2-36.6) Sec. D-Dimer (0-234) ng/mlDDU Sodium 138 (137-145) mmol/L Potassium 3.5 L (3.6-5.0) mmol/L Chloride 100.2 (98-107) mmol/L Carbon Dioxide 23 (22-30) mmol/L Anion Gap 18 mmol/L BUN 10 (9-20) mg/dL Creatinine 0.8 (0.8-1.5) mg/dL Estimated GFR > 60 ml/min BUN/Creatinine Ratio 13 % Glucose 103 H (75-100) mg/dL Calcium 9.0 (8.4-10.2) mg/dL Total Bilirubin 0.30 (0.1-1.2) mg/dL AST 76 H (5-40) units/L ALT 67 H (7-56) units/L Alkaline Phosphatase 89 (35-129) units/L Troponin T < 0.010 (0.00-0.029) ng/mL NT-Pro-B Natriuret Pep 30.58 (0-900) pg/mL Total Protein 7.7 (6.3-8.2) g/dL Albumin 4.3 (3.9-5) g/dL Albumin/Globulin Ratio 1.3 % Urine Color (Yellow) Urine Turbidity (Clear) Urine pH (5.0-7.0) Ur Specific Eagle (1.003-1.030) Urine Protein (Negative) mg/dL Urine Glucose (UA) (Negative) mg/dL Urine Ketones (Negative) mg/dL Urine Blood (Negative) Urine Nitrite (Negative) Urine Bilirubin (Negative) Urine Urobilinogen (<2.0) mg/dL Ur Leukocyte Esterase (Negative) Urine WBC (Auto) (0.0-6.0) /HPF Urine RBC (Auto) (0.0-6.0) /HPF Urine Opiates Screen Urine Methadone Screen Ur Barbiturates Screen Ur Phencyclidine Scrn Ur Amphetamines Screen U Benzodiazepines Scrn Urine Cocaine Screen U Marijuana (THC) Screen Drugs of Abuse Note 09/01/19 09/01/19 09/01/19 Range/Units 22:17 22:17 Unknown WBC (4.5-11.0) K/mm3 RBC (3.65-5.03) M/mm3 Hgb (11.8-15.2) gm/dl Hct (35.5-45.6) % MCV (84-94) fl MCH (28-32) pg MCHC (32-34) % RDW (13.2-15.2) % Plt Count (140-440) K/mm3 Lymph % (Auto) (13.4-35.0) % Coles % (Auto) (0.0-7.3) % Eos % (Auto) (0.0-4.3) % Baso % (Auto) (0.0-1.8) % Lymph # (1.2-5.4) K/mm3 Coles # (0.0-0.8) K/mm3 Eos # (0.0-0.4) K/mm3 Baso # (0.0-0.1) K/mm3 Seg Neutrophils % (40.0-70.0) % Seg Neutrophils # (1.8-7.7) K/mm3 PT (12.2-14.9) Sec. INR (0.87-1.13) APTT (24.2-36.6) Sec. D-Dimer 410.49 H (0-234) ng/mlDDU Sodium (137-145) mmol/L Potassium (3.6-5.0) mmol/L Chloride (98-107) mmol/L Carbon Dioxide (22-30) mmol/L Anion Gap mmol/L BUN (9-20) mg/dL Creatinine (0.8-1.5) mg/dL Estimated GFR ml/min BUN/Creatinine Ratio % Glucose (75-100) mg/dL Calcium (8.4-10.2) mg/dL Total Bilirubin (0.1-1.2) mg/dL AST (5-40) units/L ALT (7-56) units/L Alkaline Phosphatase (35-129) units/L Troponin T (0.00-0.029) ng/mL NT-Pro-B Natriuret Pep (0-900) pg/mL Total Protein (6.3-8.2) g/dL Albumin (3.9-5) g/dL Albumin/Globulin Ratio % Urine Color Colorless (Yellow) Urine Turbidity Clear (Clear) Urine pH 6.0 (5.0-7.0) Ur Specific Eagle 1.003 (1.003-1.030) Urine Protein <15 mg/dl (Negative) mg/dL Urine Glucose (UA) Neg (Negative) mg/dL Urine Ketones Neg (Negative) mg/dL Urine Blood Sm (Negative) Urine Nitrite Neg (Negative) Urine Bilirubin Neg (Negative) Urine Urobilinogen < 2.0 (<2.0) mg/dL Ur Leukocyte Esterase Neg (Negative) Urine WBC (Auto) 1.0 (0.0-6.0) /HPF Urine RBC (Auto) 2.0 (0.0-6.0) /HPF Urine Opiates Screen Presumptive negative Urine Methadone Screen Presumptive negative Ur Barbiturates Screen Presumptive negative Ur Phencyclidine Scrn Presumptive negative Ur Amphetamines Screen Presumptive negative U Benzodiazepines Scrn Presumptive negative Urine Cocaine Screen Presumptive positive U Marijuana (THC) Screen Presumptive negative Drugs of Abuse Note Disclamer 09/02/19 Range/Units 00:10 WBC (4.5-11.0) K/mm3 RBC (3.65-5.03) M/mm3 Hgb (11.8-15.2) gm/dl Hct (35.5-45.6) % MCV (84-94) fl MCH (28-32) pg MCHC (32-34) % RDW (13.2-15.2) % Plt Count (140-440) K/mm3 Lymph % (Auto) (13.4-35.0) % Coles % (Auto) (0.0-7.3) % Eos % (Auto) (0.0-4.3) % Baso % (Auto) (0.0-1.8) % Lymph # (1.2-5.4) K/mm3 Coles # (0.0-0.8) K/mm3 Eos # (0.0-0.4) K/mm3 Baso # (0.0-0.1) K/mm3 Seg Neutrophils % (40.0-70.0) % Seg Neutrophils # (1.8-7.7) K/mm3 PT (12.2-14.9) Sec. INR (0.87-1.13) APTT (24.2-36.6) Sec. D-Dimer (0-234) ng/mlDDU Sodium (137-145) mmol/L Potassium (3.6-5.0) mmol/L Chloride (98-107) mmol/L Carbon Dioxide (22-30) mmol/L Anion Gap mmol/L BUN (9-20) mg/dL Creatinine (0.8-1.5) mg/dL Estimated GFR ml/min BUN/Creatinine Ratio % Glucose (75-100) mg/dL Calcium (8.4-10.2) mg/dL Total Bilirubin (0.1-1.2) mg/dL AST (5-40) units/L ALT (7-56) units/L Alkaline Phosphatase (35-129) units/L Troponin T < 0.010 (0.00-0.029) ng/mL NT-Pro-B Natriuret Pep (0-900) pg/mL Total Protein (6.3-8.2) g/dL Albumin (3.9-5) g/dL Albumin/Globulin Ratio % Urine Color (Yellow) Urine Turbidity (Clear) Urine pH (5.0-7.0) Ur Specific Eagle (1.003-1.030) Urine Protein (Negative) mg/dL Urine Glucose (UA) (Negative) mg/dL Urine Ketones (Negative) mg/dL Urine Blood (Negative) Urine Nitrite (Negative) Urine Bilirubin (Negative) Urine Urobilinogen (<2.0) mg/dL Ur Leukocyte Esterase (Negative) Urine WBC (Auto) (0.0-6.0) /HPF Urine RBC (Auto) (0.0-6.0) /HPF Urine Opiates Screen Urine Methadone Screen Ur Barbiturates Screen Ur Phencyclidine Scrn Ur Amphetamines Screen U Benzodiazepines Scrn Urine Cocaine Screen U Marijuana (THC) Screen Drugs of Abuse Note - EKG Data -: EKG Interpreted by Me EKG shows normal: sinus rhythm, axis, intervals, QRS complexes, ST-T waves Rate: normal - EKG Data Interpretation: normal EKG - Radiology Data Radiology results: report reviewed (CXR WNL) CTA CHEST WITH IV CONTRAST INDICATION / CLINICAL INFORMATION: chest pain with elevated ddimer. TECHNIQUE: Axial CT images were obtained through the chest after injection of 100 mL Omnipaque 350 IV contrast. 3 plane MIP and/or 3D reconstructions were produced. All CT scans at this location are performed using CT dose reduction for ALARA by means of automated exposure control. COMPARISON: Chest radiograph from earlier the same day FINDINGS: PULMONARY ARTERIES: No pulmonary emboli. THORACIC AORTA: No significant abnormality. HEART: No significant abnormality. PLEURA: No pleural effusion. No pneumothorax. LYMPH NODES: No adenopathy. LUNGS: No acute air space or interstitial disease. ADDITIONAL FINDINGS: None. UPPER ABDOMEN: No acute findings. SKELETAL STRUCTURES: No significant osseous abnormality. IMPRESSION: 1. No CT evidence for pulmonary embolism. 2. No acute findings. Signer Name: Federico Canales M - Medical Decision Making Patient is a 54-year-old -[place]enian male who is presenting with chest discomfort. Patient states chest pain is constant for 2 days. When reviewing the patient's past medical history patient had a stress test in October 2018 which was negative. Patient had echo at that time as well which showed an EF of 4550%. Patient is adamant that he is not used any cocaine for the last several months however his drug screen was positive. Patient admitted to recent use. Patient's had 2 negative troponins which is ruled out an [place]. Patient's chest pain likely secondary to cocaine abuse. Patient does have some large edema however there is no pulmonary edema at this time. Patient given a prescription for his Bumex. Patient also given refills of his Norvasc and had 4 thiazide. Patient will be given outpatient referral to cardiology to be seen sometime this week. Patient given 2 doses of colchicine here in emergency department. The cause of the patient's illicit drug use and dishonest no narcotics will be g iven. CT angiogram was done of the chest to rule out pulmonary embolus secondary to elevated d-dimer and is negative as well. Patient ruled out for a life-threatening condition at this time be discharged home. Critical Care Time: No Critical care attestation.: If time is entered above; I have spent that time in minutes in the direct care of this critically ill patient, excluding procedure time. ED Disposition Clinical Impression: Chest pain, Leg swelling, Cocaine abuse, Acute gout Disposition: TO HOME OR SELFCARE Is pt being admited?: No Does the pt Need Aspirin: No Condition: Stable Instructions: Chest Pain (ED), Acute Gouty Arthritis (ED), Cocaine Abuse (ED) Additional Instructions: Please follow up with cardiology. A referral has been sent and they will contact you within the next 1-2 business days. Time of Disposition: 01:19
[2019-09-02] MEDS ORDERED: COLCHICINE 0.6 MG CAP PO ONE (01:20)
[2019-09-02 02:26] VITALS: BP 140/99
== END 2019-09-02 02:15 | disposition home or self-care (01) ==
LOC: ED 20:02
DX: R07.89 Other chest pain (principal); M10.9 Gout, unspecified; F14.10 Cocaine abuse, uncomplicated; I11.0 Hypertensive heart disease with heart failure; I50.9 Heart failure, unspecified; J45.909 Unspecified asthma, uncomplicated; F17.200 Nicotine dependence, unspecified, uncomplicated; Z79.899 Other long term (current) drug therapy; Z98.890 Other specified postprocedural states; Z88.6 Allergy status to analgesic agent; Z88.1 Allergy status to other antibiotic agents; Z88.0 Allergy status to penicillin
CPT/HCPCS: 36415; 71046; 71275; 80053; 80307; 81001; 83880; 84484; 85025; 85379; 85610; 85730; 93005; 93010; 96374; 96375; 99285; J1885; Q9967

== ENCOUNTER 2019-09-19 21:50 | Emergency (ER) | payer MEDICAID ==
[2019-09-20 01:32] VITALS: BP 118/84
[2019-09-20] MEDS ORDERED: predniSONE 20 MG TAB PO ONE (07:54)
[2019-09-20] MEDS ORDERED: ALBUTEROL 2.5 MG/3 ML NEBU IH ONE (07:54)
--- NOTE | 2019-09-20 07:55 | Emergency Department Report ---
- General Chief Complaint: Upper Respiratory Infection Stated Complaint: COLD SYM Time Seen by Provider: 09/20/19 07:21 Source: patient Mode of arrival: Stretcher Limitations: No Limitations - History of Present Illness Initial Comments: This is a pleasant 54-year-old male presents the emergency department with a chief complaint of "I have the flu." Patient reports generalized body aches, fever with a MAXIMUM TEMPERATURE of 102, sore throat, cough, congestion. Patient reports past medical history of gout, CHF, asthma, hypertension, BPH. Patient denies any recent travel. Patient denies any chest pain, shortness of breath, headache, dizziness, blurred vision, nausea, vomiting, diarrhea or any associated symptoms. - Related Data Previous Rx's Medication Instructions Recorded Last Taken Type Albuterol Sulfate [Proair 90 mcg IH Q4-6H 30 Days #1 03/24/19 Unknown Rx Respiclick] aer.pow.ba Colchicine 0.6 mg PO BID #60 capsule 03/24/19 Unknown Rx Fluticasone [Flonase] 1 spray INNOSTRIL DAILY 30 Days #1 03/24/19 Unknown Rx bottle Mirtazapine [Remeron 15mg TAB] 15 mg PO QHS #30 tablet 03/24/19 Unknown Rx Tamsulosin [Flomax] 0.4 mg PO DAILY #30 capsule 03/24/19 Unknown Rx allopurinoL [Zyloprim] 100 mg PO QDAY #30 tablet 03/24/19 Unknown Rx guaiFENesin ER [Mucinex ER] 600 mg PO BID #60 tablet 03/24/19 Unknown Rx Bumetanide [Bumex 1 mg tab] 1 mg PO BID #60 tablet 09/02/19 Unknown Rx Indomethacin [Indocin] 50 mg PO Q12HR #60 capsule 09/02/19 Unknown Rx Albuterol Sulfate [Proair 90 mcg IH Q4HR #1 aer.pow.ba 09/20/19 Unknown Rx Respiclick] Benzonatate [Tessalon Perles] 100 mg PO Q8HR #30 capsule 09/20/19 Unknown Rx methylPREDNISolone [Medrol 4MG 4 mg PO QDAY #1 tab.ds.pk 09/20/19 Unknown Rx DOSEPAK (21 tabs)] Allergies Allergy/AdvReac Type Severity Reaction Status Date / Time acetaminophen [From Tylenol] Allergy Unknown Verified 03/20/19 03:00 aspirin Allergy Unknown Verified 03/19/19 23:11 furosemide [From Lasix] Allergy Unknown Verified 03/19/19 23:16 ibuprofen [From Motrin] Allergy Unknown Verified 03/19/19 23:11 Penicillins Allergy Hives Verified 11/17/18 00:21 ED Review of Systems ROS: Stated complaint: COLD SYM Other details as noted in HPI Comment: All other systems reviewed and negative Constitutional: denies: chills, fever Eyes: denies: eye pain, eye discharge, vision change ENT: denies: ear pain, throat pain Respiratory: no symptoms reported, cough. denies: shortness of breath, wheezing Cardiovascular: denies: chest pain, palpitations Endocrine: no symptoms reported Gastrointestinal: denies: abdominal pain, nausea, diarrhea Genitourinary: denies: urgency, dysuria Musculoskeletal: as per HPI, myalgia. denies: back pain, joint swelling, arthralgia Skin: denies: rash, lesions Neurological: denies: headache, weakness, paresthesias Psychiatric: denies: anxiety, depression Hematological/Lymphatic: denies: easy bleeding, easy bruising ED Past Medical Hx - Past Medical History Previous Medical History?: Yes Hx Hypertension: Yes Hx Heart Attack/AMI: No Hx Congestive Heart Failure: Yes Hx Diabetes: No Hx Deep Vein Thrombosis: No Hx Pulmonary Embolism: No Hx Arthritis: No Hx Seizures: Yes Hx Asthma: Yes Hx COPD: No Hx Tuberculosis: No Additional medical history: BPH - Surgical History Past Surgical History?: Yes Hx Coronary Stent: No Hx Pacemaker: No Hx Internal Defibrillator: No Additional Surgical History: Right forearm tendon repair, right lower extremity tendon repair - Social History Smoking Status: Never Smoker Substance Use Type: None - Medications Home Medications: Home Medications Medication Instructions Recorded Confirmed Last Taken Type Albuterol Sulfate [Proair 90 mcg IH Q4-6H 30 Days #1 03/24/19 Unknown Rx Respiclick] aer.pow.ba Colchicine 0.6 mg PO BID #60 capsule 03/24/19 Unknown Rx Fluticasone [Flonase] 1 spray INNOSTRIL DAILY 30 Days #1 03/24/19 Unknown Rx bottle Mirtazapine [Remeron 15mg TAB] 15 mg PO QHS #30 tablet 03/24/19 Unknown Rx Tamsulosin [Flomax] 0.4 mg PO DAILY #30 capsule 03/24/19 Unknown Rx allopurinoL [Zyloprim] 100 mg PO QDAY #30 tablet 03/24/19 Unknown Rx guaiFENesin ER [Mucinex ER] 600 mg PO BID #60 tablet 03/24/19 Unknown Rx Bumetanide [Bumex 1 mg tab] 1 mg PO BID #60 tablet 09/02/19 Unknown Rx Indomethacin [Indocin] 50 mg PO Q12HR #60 capsule 09/02/19 Unknown Rx Albuterol Sulfate [Proair 90 mcg IH Q4HR #1 aer.pow.ba 09/20/19 Unknown Rx Respiclick] Benzonatate [Tessalon Perles] 100 mg PO Q8HR #30 capsule 09/20/19 Unknown Rx methylPREDNISolone [Medrol 4MG 4 mg PO QDAY #1 tab.ds.pk 09/20/19 Unknown Rx DOSEPAK (21 tabs)] ED Physical Exam - General Limitations: No Limitations General appearance: alert, in no apparent distress, other (sleeping prior to my initial evaluation. Easily arousable) - Head Head exam: Present: atraumatic, normocephalic - Eye Eye exam: Present: normal appearance - ENT ENT exam: Present: normal exam, normal orophraynx, mucous membranes moist, TM's normal bilaterally - Neck Neck exam: Present: normal inspection, full ROM. Absent: meningismus - Respiratory Respiratory exam: Present: normal lung sounds bilaterally, other. Absent: respiratory distress, wheezes, rales, rhonchi, stridor - Cardiovascular Cardiovascular Exam: Present: regular rate, normal rhythm, normal heart sounds. Absent: systolic murmur, diastolic murmur, rubs, gallop - GI/Abdominal GI/Abdominal exam: Present: soft, normal bowel sounds. Absent: distended, tenderness, guarding - Rectal Rectal exam: Present: deferred - Extremities Exam Extremities exam: Present: normal inspection, full ROM, other (no lower extremity edema, negative Homans sign bilaterally. No posterior calf tenderness.). Absent: tenderness, pedal edema, calf tenderness - Back Exam Back exam: Present: normal inspection - Neurological Exam Neurological exam: Present: alert, oriented X3, CN II-XII intact - Psychiatric Psychiatric exam: Present: normal affect, normal mood - Skin Skin exam: Present: warm, dry, intact, normal color. Absent: rash ED Course Vital Signs 09/20/19 09/20/19 01:28 08:33 Temperature 99.1 F Pulse Rate 101 H Pulse Rate [ 88 Bilateral] Respiratory 20 Rate Respiratory 16 Rate [Bilateral ] Blood Pressure 118/84 [Left] O2 Sat by Pulse 98 Oximetry ED Medical Decision Making - Radiology Data Radiology results: report reviewed, image reviewed interpreted by me: Patient: EDIL SEWELL MR#: [id number] : 1965 Acct:[id number] Age/Sex: 54 / M ADM Date: 09/19/19 Loc: ED Attending Dr: Ordering Physician: NOREEN CONTE Date of Service: 09/20/19 Procedure(s): XR chest routine 2V Accession Number(s): [id number] cc: NOREEN CONTE Fluoro Time In Minutes: CHEST 2 VIEWS INDICATION: cough, fever. COMPARISON: 09/01/2019 FINDINGS: Support devices: None. Heart: Within normal limits. Lungs/pleura: No acute air space or interstitial disease. No pneumothorax. Additional findings: None. IMPRESSION: Normal chest x-ray Signer Name: Ruperto Knutson Jr, MD Signed: 09/20/2019 8:27 AM Workstation Name: [id number] Transcribed By: TTR Dictated By: RUPERTO KNUTSON JR, MD Electronically Authenticated By: RUPERTO KNUTSON JR, MD Signed Date/Time: 09/20/19826 - Medical Decision Making Patient is nontoxic in no acute distress. Vitals are stable. Patient's chest x-ray was clear and lungs are clear. We did give a breathing treatment due to his reported symptoms and this for improved his symptoms. We'll send him home with an inhaler, steroid pack and recommended close follow-up with his primary care doctor. Patient was given strict return precautions for any changing worsening symptoms. He verbalizes understanding of the diagnosis, treatment plan follow-up instructions and strict return precautions and all his questions were answered. Patient low risk by well's criteria with no pleuritic pain, hypoxia, hemoptysis, history of PE making PE unlikely. - Differential Diagnosis pneumonia, influenza, CHF exacerbation Critical care attestation.: If time is entered above; I have spent that time in minutes in the direct care of this critically ill patient, excluding procedure time. ED Disposition Clinical Impression: Acute viral syndrome Disposition: DC-01 TO HOME OR SELFCARE Is pt being admited?: No Condition: Stable Instructions: Influenza (ED) Prescriptions: methylPREDNISolone [Medrol 4MG DOSEPAK (21 tabs)] 4 mg PO QDAY #1 tab.ds.pk Albuterol Sulfate [Proair Respiclick] 90 mcg IH Q4HR #1 aer.pow.ba Benzonatate [Tessalon Perles] 100 mg PO Q8HR #30 capsule Referrals: PRIMARY CARE, [Primary Care Provider] - 3-5 Days Forms: Work/School Release Form(ED) Time of Disposition: 09:18
--- NOTE | 2019-09-20 08:31 | XRay Report ---
CHEST 2 VIEWS INDICATION: cough, fever. COMPARISON: 09/01/2019 FINDINGS: Support devices: None. Heart: Within normal limits. Lungs/pleura: No acute air space or interstitial disease. No pneumothorax. Additional findings: None. IMPRESSION: Normal chest x-ray Signer Name: Ruperto Carbajal Jr, MD Signed: 09/20/2019 8:27 AM Workstation Name: [id number]
== END 2019-09-20 09:38 | disposition home or self-care (01) ==
LOC: ED 21:50
DX: B34.9 Viral infection, unspecified (principal); I11.0 Hypertensive heart disease with heart failure; I50.9 Heart failure, unspecified; J45.909 Unspecified asthma, uncomplicated; Z98.890 Other specified postprocedural states; Z79.899 Other long term (current) drug therapy; Z88.6 Allergy status to analgesic agent; Z88.0 Allergy status to penicillin; Z88.8 Allergy status to other drugs, medicaments and biological substances
CPT/HCPCS: 71046; 94640; 99284; J7512; 94644

== ENCOUNTER 2019-09-26 21:55 | Emergency (ER) | payer MEDICAID ==
[2019-09-27 00:07] LABS: Basophils % (Auto) 0.8 % (0.0-1.8); Eosinophils # (Auto) 0.2 K/mm3 (0.0-0.4); Eosinophils % (Auto) 4.1 % (0.0-4.3); Hematocrit 40.5 % (35.5-45.6); Hemoglobin 13.6 gm/dl (11.8-15.2); Lymphocytes # (Auto) 1.8 K/mm3 (1.2-5.4); Lymphocytes % (Auto) 38.7 % (13.4-35.0); Mean Corpuscular HGB Conc 34 % (32-34); Mean Corpuscular Volume 97 fl (84-94); Monocytes # (Auto) 0.5 K/mm3 (0.0-0.8); Monocytes % (Auto) 11.4 % (0.0-7.3); Platelet Count 241 K/mm3 (140-440); Red Blood Count 4.19 M/mm3 (3.65-5.03); Red Cell Distribution Width 15.7 % (13.2-15.2)
[2019-09-27 00:24] LABS: BUN/Creatinine Ratio 17; Blood Urea Nitrogen 12 mg/dL (9-20); Calcium 8.6 mg/dL (8.4-10.2); Hemolysis Index 5
[2019-09-27] MEDS ORDERED: traMADol 50 MG TAB PO ONE (03:22)
[2019-09-27] MEDS ORDERED: COLCHICINE 0.6 MG CAP PO ONE (05:15)
--- NOTE | 2019-09-27 05:17 | Emergency Department Report ---
ED General Adult HPI - General Chief complaint: Syncope Stated complaint: SYNCOPE Time Seen by Provider: 09/27/19 02:58 Source: patient Mode of arrival: Ambulatory Limitations: No Limitations - History of Present Illness Initial comments: Patient is a 54-year-old [place] male with past medical history of schizophrenia who states he's been having blackout spells for the past 2 days. Patient states he is not "passing out" but rather blacking out and not remembering enlarged tonsil time. Patient states the fit that he has on his brand-new and he does not remember buying it. Patient also states he is hearing some voices as well and is having thoughts of killing himself. He denies any fevers chills nausea vomiting diarrhea. Patient states does have bilateral wrist pain secondary to gout. Severity scale (0 -10): 9 - Related Data Previous Rx's Medication Instructions Recorded Last Taken Type Albuterol Sulfate [Proair 90 mcg IH Q4-6H 30 Days #1 03/24/19 Unknown Rx Respiclick] aer.pow.ba Colchicine 0.6 mg PO BID #60 capsule 03/24/19 Unknown Rx Fluticasone [Flonase] 1 spray INNOSTRIL DAILY 30 Days #1 03/24/19 Unknown Rx bottle Mirtazapine [Remeron 15mg TAB] 15 mg PO QHS #30 tablet 03/24/19 Unknown Rx Tamsulosin [Flomax] 0.4 mg PO DAILY #30 capsule 03/24/19 Unknown Rx allopurinoL [Zyloprim] 100 mg PO QDAY #30 tablet 03/24/19 Unknown Rx guaiFENesin ER [Mucinex ER] 600 mg PO BID #60 tablet 03/24/19 Unknown Rx Bumetanide [Bumex 1 mg tab] 1 mg PO BID #60 tablet 09/02/19 Unknown Rx Indomethacin [Indocin] 50 mg PO Q12HR #60 capsule 09/02/19 Unknown Rx Albuterol Sulfate [Proair 90 mcg IH Q4HR #1 aer.pow.ba 09/20/19 Unknown Rx Respiclick] Benzonatate [Tessalon Perles] 100 mg PO Q8HR #30 capsule 09/20/19 Unknown Rx methylPREDNISolone [Medrol 4MG 4 mg PO QDAY #1 tab.ds.pk 09/20/19 Unknown Rx DOSEPAK (21 tabs)] Allergies Allergy/AdvReac Type Severity Reaction Status Date / Time acetaminophen [From Tylenol] Allergy Unknown Verified 03/20/19 03:00 aspirin Allergy Unknown Verified 03/19/19 23:11 furosemide [From Lasix] Allergy Unknown Verified 03/19/19 23:16 ibuprofen [From Motrin] Allergy Unknown Verified 03/19/19 23:11 Penicillins Allergy Hives Verified 11/17/18 00:21 ED Review of Systems ROS: Stated complaint: SYNCOPE Other details as noted in HPI Comment: All other systems reviewed and negative ED Past Medical Hx - Past Medical History Previous Medical History?: Yes Hx Hypertension: Yes Hx Heart Attack/AMI: No Hx Congestive Heart Failure: Yes Hx Diabetes: No Hx Deep Vein Thrombosis: No Hx Pulmonary Embolism: No Hx Arthritis: No Hx Seizures: Yes Hx Psychiatric Treatment: Yes (Schizophrenia) Hx Asthma: Yes Hx COPD: No Hx Tuberculosis: No Additional medical history: BPH - Surgical History Past Surgical History?: Yes Hx Coronary Stent: No Hx Pacemaker: No Hx Internal Defibrillator: No Additional Surgical History: Right forearm tendon repair, right lower extremity tendon repair - Social History Smoking Status: Never Smoker Substance Use Type: None - Medications Home Medications: Home Medications Medication Instructions Recorded Confirmed Last Taken Type Albuterol Sulfate [Proair 90 mcg IH Q4-6H 30 Days #1 03/24/19 Unknown Rx Respiclick] aer.pow.ba Colchicine 0.6 mg PO BID #60 capsule 03/24/19 Unknown Rx Fluticasone [Flonase] 1 spray INNOSTRIL DAILY 30 Days #1 03/24/19 Unknown Rx bottle Mirtazapine [Remeron 15mg TAB] 15 mg PO QHS #30 tablet 03/24/19 Unknown Rx Tamsulosin [Flomax] 0.4 mg PO DAILY #30 capsule 03/24/19 Unknown Rx allopurinoL [Zyloprim] 100 mg PO QDAY #30 tablet 03/24/19 Unknown Rx guaiFENesin ER [Mucinex ER] 600 mg PO BID #60 tablet 03/24/19 Unknown Rx Bumetanide [Bumex 1 mg tab] 1 mg PO BID #60 tablet 09/02/19 Unknown Rx Indomethacin [Indocin] 50 mg PO Q12HR #60 capsule 09/02/19 Unknown Rx Albuterol Sulfate [Proair 90 mcg IH Q4HR #1 aer.pow.ba 09/20/19 Unknown Rx Respiclick] Benzonatate [Tessalon Perles] 100 mg PO Q8HR #30 capsule 09/20/19 Unknown Rx methylPREDNISolone [Medrol 4MG 4 mg PO QDAY #1 tab.ds.pk 09/20/19 Unknown Rx DOSEPAK (21 tabs)] ED Physical Exam - General Limitations: No Limitations General appearance: alert, in no apparent distress - Head Head exam: Present: atraumatic, normocephalic - Eye Eye exam: Present: normal appearance - ENT ENT exam: Present: mucous membranes moist - Neck Neck exam: Present: normal inspection - Respiratory Respiratory exam: Present: normal lung sounds bilaterally. Absent: respiratory distress, wheezes, rales, rhonchi - Cardiovascular Cardiovascular Exam: Present: regular rate, normal rhythm, normal heart sounds. Absent: systolic murmur, diastolic murmur, rubs, gallop - GI/Abdominal GI/Abdominal exam: Present: soft, normal bowel sounds. Absent: distended, tenderness, guarding, rebound - Rectal Rectal exam: Present: deferred - Extremities Exam Extremities exam: Present: normal inspection, joint swelling (swelling to the bilateral wrists left greater than right consistent with gouty arthritis) - Back Exam Back exam: Present: normal inspection - Neurological Exam Neurological exam: Present: alert, oriented X3 - Psychiatric Psychiatric exam: Present: normal affect, normal mood - Skin Skin exam: Present: warm, dry, intact, normal color. Absent: rash ED Course Vital Signs 09/27/19 02:37 Temperature 98.4 F Pulse Rate 77 Respiratory 12 Rate Blood Pressure 157/90 [right arm] O2 Sat by Pulse 98 Oximetry ED Medical Decision Making - Lab Data Result diagrams: 09/26/19 23:45 09/26/19 23:45 Lab Results 09/26/19 09/26/19 09/26/19 Range/Units 23:45 23:45 23:45 WBC (4.5-11.0) K/mm3 RBC (3.65-5.03) M/mm3 Hgb (11.8-15.2) gm/dl Hct (35.5-45.6) % MCV (84-94) fl MCH (28-32) pg MCHC (32-34) % RDW (13.2-15.2) % Plt Count (140-440) K/mm3 Lymph % (Auto) (13.4-35.0) % Miner % (Auto) (0.0-7.3) % Eos % (Auto) (0.0-4.3) % Baso % (Auto) (0.0-1.8) % Lymph # (1.2-5.4) K/mm3 Miner # (0.0-0.8) K/mm3 Eos # (0.0-0.4) K/mm3 Baso # (0.0-0.1) K/mm3 Seg Neutrophils % (40.0-70.0) % Seg Neutrophils # (1.8-7.7) K/mm3 Sodium 142 (137-145) mmol/L Potassium 3.8 (3.6-5.0) mmol/L Chloride 102.9 (98-107) mmol/L Carbon Dioxide 24 (22-30) mmol/L Anion Gap 19 mmol/L BUN 12 (9-20) mg/dL Creatinine 0.7 L (0.8-1.5) mg/dL Estimated GFR > 60 ml/min BUN/Creatinine Ratio 17 % Glucose 122 H (75-100) mg/dL Calcium 8.6 (8.4-10.2) mg/dL Salicylates < 0.3 L (2.8-20.0) mg/dL Acetaminophen < 5.0 L (10.0-30.0) ug/mL Plasma/Serum Alcohol (0-0.07) % 09/26/19 09/26/19 Range/Units 23:45 23:45 WBC 4.7 (4.5-11.0) K/mm3 RBC 4.19 (3.65-5.03) M/mm3 Hgb 13.6 (11.8-15.2) gm/dl Hct 40.5 (35.5-45.6) % MCV 97 H (84-94) fl MCH 32 (28-32) pg MCHC 34 (32-34) % RDW 15.7 H (13.2-15.2) % Plt Count 241 (140-440) K/mm3 Lymph % (Auto) 38.7 H (13.4-35.0) % Miner % (Auto) 11.4 H (0.0-7.3) % Eos % (Auto) 4.1 (0.0-4.3) % Baso % (Auto) 0.8 (0.0-1.8) % Lymph # 1.8 (1.2-5.4) K/mm3 Miner # 0.5 (0.0-0.8) K/mm3 Eos # 0.2 (0.0-0.4) K/mm3 Baso # 0.0 (0.0-0.1) K/mm3 Seg Neutrophils % 45.0 (40.0-70.0) % Seg Neutrophils # 2.1 (1.8-7.7) K/mm3 Sodium (137-145) mmol/L Potassium (3.6-5.0) mmol/L Chloride (98-107) mmol/L Carbon Dioxide (22-30) mmol/L Anion Gap mmol/L BUN (9-20) mg/dL Creatinine (0.8-1.5) mg/dL Estimated GFR ml/min BUN/Creatinine Ratio % Glucose (75-100) mg/dL Calcium (8.4-10.2) mg/dL Salicylates (2.8-20.0) mg/dL Acetaminophen (10.0-30.0) ug/mL Plasma/Serum Alcohol 0.01 (0-0.07) % - Medical Decision Making Patient is a 54-year-old gentleman who states is having "blackout spells". Patient's orthostatics are within normal limits and his laboratory studies did not show any acute process. Patient is stable for psychiatric evaluation. Critical care attestation.: If time is entered above; I have spent that time in minutes in the direct care of this critically ill patient, excluding procedure time. ED Disposition Condition: Stable Referrals: PRIMARY CARE, [Primary Care Provider] - 3-5 Days
[2019-09-27 10:00] LABS: Bilirubin,Urine NEG (Negative); Blood,Urine SM (Negative); Color,Urine Yellow (Yellow); Mucus,Urine FEW /HPF; Protein,Urine <15 mg/dL mg/dL (Negative); Urobilinogen,Urine < 2.0 mg/dL (<2.0); WBC,Urine < 1.0 /HPF (0.0-6.0)
[2019-09-27 10:08] LABS: Amphetamine Screen,Urine PRESUMPTIVE NEGATIVE; Benzodiazepines Screen,Urine PRESUMPTIVE NEGATIVE; Methadone Screen,Urine PRESUMPTIVE NEGATIVE; Opiate Screen,Urine PRESUMPTIVE NEGATIVE
[2019-09-27 10:22] LABS: Cannabinoid Screen,Urine PRESUMPTIVE POSITIVE; Cocaine Screen,Urine PRESUMPTIVE POSITIVE
[2019-09-27] MEDS ORDERED: hydroCHLOROthiazide 25 MG TAB PO ONE (12:08)
[2019-09-27] MEDS ORDERED: amLODIPine 5 MG TAB PO ONE (12:08)
[2019-09-27] MEDS ORDERED: predniSONE 20 MG TAB PO ONE (12:11)
[2019-09-27 13:42] VITALS: BP 153/99
== END 2019-09-27 18:05 ==
LOC: ED 21:55
DX: R44.0 Auditory hallucinations (principal); I11.0 Hypertensive heart disease with heart failure; I50.9 Heart failure, unspecified; F20.9 Schizophrenia, unspecified; J45.909 Unspecified asthma, uncomplicated; N40.0 Benign prostatic hyperplasia without lower urinary tract symptoms; Z88.2 Allergy status to sulfonamides; Z88.0 Allergy status to penicillin; Z88.8 Allergy status to other drugs, medicaments and biological substances
CPT/HCPCS: 36415; 80048; 80307; 81001; 85025; 99285; J7512; 80320; G0480